=== PATIENT | female | born 1985 | race Asian ===

== ENCOUNTER 2016-10-11 21:35 | Inpatient (IN) | payer MEDICAID, OTHER ==
[~2016-10-11] VITALS: Ht 170.2 cm; Wt 92.9 kg
[~2016-10-11 21:35] MED LIST: FISH1 PO; FLUD25I IM; QUET100T PO; TOPI100 PO; TRIH2TAB3 PO; TRIL8 PO; VITAD1000 PO
[2016-10-11 22:27] LABS: BASOPHILS # (AUTO) 0.02 K/uL (0.00-0.20); BASOPHILS % (AUTO) 0.2 % (0.0-2.0); EOSINOPHILS # (AUTO) 0.03 K/uL (0.00-0.70); HEMATOCRIT 36.9 % (36-46); HEMOGLOBIN 12.2 g/dL (12.0-16.0); LYMPHOCYTES # (AUTO) 2.4 K/uL (1.0-4.8); MEAN CORPUSCULAR HEMOGLOBIN 24.9 pg (26.0-34.0); MEAN CORPUSCULAR VOLUME 75 fL (80-100); MONOCYTES # (AUTO) 0.9 K/uL (0.1-1.0); MONOCYTES % (AUTO) 8.1 % (2.0-9.0); NEUTROPHILS # (AUTO) 7.4 K/uL (1.8-7.7); NEUTROPHILS % (AUTO) 69.4 % (40.0-70.0); PLATELET COUNT (AUTO) 233 K/uL (150-450); RED CELL DISTRIBUTION WIDTH 15.9 % (11.5-14.5); WHITE BLOOD COUNT (AUTO) 10.7 K/uL (4.5-11.0)
[2016-10-11 22:36] LABS: ANION GAP 14 mmol/L (8-16); CALCIUM, TOTAL 9.2 mg/dL (8.8-10.5); CARBON DIOXIDE 22 mmol/L (22-29); CHLORIDE 104 mmol/L (98-107); CREATININE 0.99 mg/dL (0.60-1.30); GLOMERULAR FILTR. RATE CALC > 60 mL/min (>60); POTASSIUM 3.4 mmol/L (3.5-5.1); SODIUM SERUM 140 mmol/L (136-145); UREA NITROGEN, BLOOD 20 mg/dL (7-18)
[2016-10-11 22:41] LABS: ALANINE AMINOTRANSFERASE 15 U/L (12-78); ASPARTATE AMINOTRANSFERASE 9 U/L (15-37); BILIRUBIN,TOTAL 0.2 mg/dL (0.1-1.0); TOTAL PROTEIN, SERUM 8.2 g/dL (6.4-8.2)
[2016-10-11] MEDS ORDERED: LORazepam 2 MG/ML VIAL IM ONE (22:45)
[2016-10-11] MEDS ORDERED: HALOPERIDOL LACTATE 5 MG/ML VIAL IM ONE (22:45)
[2016-10-11] MEDS ORDERED: DiphenhydrAMINE HCL 50 MG/ML VIAL IM ONE (22:45)
[2016-10-12] MEDS ORDERED: QUEtiapine FUMARATE 100 MG TABLET PO PRN (03:45)
[2016-10-12] MEDS ORDERED: LORazepam 2 MG TABLET PO PRN (03:45)
[2016-10-12] MEDS ORDERED: POTASSIUM CHLORIDE 20 MEQ ER TABLET PO ONE (07:00)
[2016-10-12 08:56] LABS: GLUCOSE,POINT OF CARE 188 MG/DL (70-110)
[2016-10-12 10:03] VITALS: BP 102/67
[2016-10-12] MEDS ORDERED: COLLOIDAL OATMEAL/DIMETH 227 GM LOTION TP PRN (11:15)
[2016-10-12] MEDS: DiphenhydrAMINE HCL 25 MG CAPSULE PO PRN ×2 (13:25→23:57)
[2016-10-12] MEDS ORDERED: INFLUENZA VIRUS VACCINE QVS 2016-17 (3YR+)/PF 60 MCG/0.5 ML SYRINGE IM ONE (14:30)
[2016-10-12 16:00] VITALS: BP 126/96
[2016-10-12] MEDS: TOPIRAMATE 100 MG TABLET PO SCH (20:58)
[2016-10-12] MEDS: ILOPERIDONE 2 MG TABLET PO SCH (20:58)
[2016-10-12] MEDS: PERPHENAZINE 8 MG TABLET PO SCH (20:59)
[2016-10-13] VITALS: BP 133/75
[2016-10-13] MEDS: PERPHENAZINE 4 MG TABLET PO SCH (08:26)
[2016-10-13] MEDS: ILOPERIDONE 2 MG TABLET PO SCH ×2 (08:28→20:23)
[2016-10-13 08:57] VITALS: BP 136/84
[2016-10-13 16:00] VITALS: BP 132/79
[2016-10-13] MEDS: PERPHENAZINE 8 MG TABLET PO SCH (20:23)
[2016-10-13] MEDS: TOPIRAMATE 100 MG TABLET PO SCH (20:23)
[2016-10-13] MEDS: DiphenhydrAMINE HCL 25 MG CAPSULE PO PRN (22:37)
[2016-10-14 08:00] VITALS: BP 117/79
[2016-10-14] MEDS: PERPHENAZINE 4 MG TABLET PO SCH (09:33)
[2016-10-14] MEDS: ILOPERIDONE 2 MG TABLET PO SCH ×2 (09:34→21:02)
[2016-10-14 18:35] VITALS: BP 121/72
[2016-10-14] MEDS: TOPIRAMATE 100 MG TABLET PO SCH (21:02)
[2016-10-14] MEDS: PERPHENAZINE 8 MG TABLET PO SCH (21:02)
[2016-10-15] MEDS: DiphenhydrAMINE HCL 25 MG CAPSULE PO PRN (06:05)
[2016-10-15 07:21] LABS: HEMOGLOBIN A1C 5.4 % (4.5-6.2)
[2016-10-15 08:04] LABS: ANION GAP 13 mmol/L (8-16); CARBON DIOXIDE 21 mmol/L (22-29); CHLORIDE 106 mmol/L (98-107); CHOL/HDL RATIO 4.5 (3.9-5.7); CREATINE KINASE MB 0.6 ng/mL (0-5); CREATINE KINASE, TOTAL 217 U/L (26-192); CREATININE 0.68 mg/dL (0.60-1.30); GLOMERULAR FILTR. RATE CALC > 60 mL/min (>60); POTASSIUM 3.5 mmol/L (3.5-5.1); SODIUM SERUM 140 mmol/L (136-145); THYROID STIMULATING HORMONE 2.19 uIU/mL (0.36-3.74); UREA NITROGEN, BLOOD 17 mg/dL (7-18)
[2016-10-15 08:05] VITALS: BP 119/83
[2016-10-15 08:17] LABS: CALCIUM, TOTAL 8.3 mg/dL (8.8-10.5)
[2016-10-15] MEDS: ILOPERIDONE 2 MG TABLET PO SCH ×2 (11:19→20:29)
[2016-10-15] MEDS: PERPHENAZINE 4 MG TABLET PO SCH (11:19)
[2016-10-15 17:49] VITALS: BP 126/70
[2016-10-15] MEDS: PERPHENAZINE 8 MG TABLET PO SCH (20:28)
[2016-10-15] MEDS: TOPIRAMATE 100 MG TABLET PO SCH (20:29)
[2016-10-16 08:05] VITALS: BP 113/78
[2016-10-16] MEDS: ILOPERIDONE 2 MG TABLET PO SCH ×2 (10:06→20:02)
[2016-10-16] MEDS: PERPHENAZINE 4 MG TABLET PO SCH (10:06)
[2016-10-16 11:17] LABS: HEPATITIS Bs ANTIGEN SCREEN P Negative (Negative); HEPATITIS C AB SCREEN <0.1 s/co ratio (0.0-0.9)
[2016-10-16 17:57] VITALS: BP 131/82
[2016-10-16] MEDS: TOPIRAMATE 100 MG TABLET PO SCH (20:03)
[2016-10-16] MEDS: PERPHENAZINE 8 MG TABLET PO SCH (20:03)
[2016-10-16] MEDS: DiphenhydrAMINE HCL 25 MG CAPSULE PO PRN (20:30)
[2016-10-17] MEDS: DiphenhydrAMINE HCL 25 MG CAPSULE PO PRN (08:01)
[2016-10-17] MEDS: PERPHENAZINE 4 MG TABLET PO SCH (08:02)
[2016-10-17] MEDS: ILOPERIDONE 2 MG TABLET PO SCH ×2 (08:02→20:00)
[2016-10-17 08:05] VITALS: BP 111/71
[2016-10-17 16:44] VITALS: BP 107/66
[2016-10-17] MEDS: TOPIRAMATE 100 MG TABLET PO SCH (20:00)
[2016-10-17] MEDS: PERPHENAZINE 8 MG TABLET PO SCH (20:00)
[2016-10-18 08:05] VITALS: BP 111/64
[2016-10-18] MEDS ORDERED: TRIL8 PO (08:38)
[2016-10-18] MEDS ORDERED: ILOP2TAB2 PO (08:38)
[2016-10-18] MEDS ORDERED: TRIL4 PO (08:38)
[2016-10-18] MEDS: TOPIRAMATE 100 MG TABLET PO SCH (08:57)
[2016-10-18] MEDS: ILOPERIDONE 2 MG TABLET PO SCH (08:57)
[2016-10-18] MEDS: DiphenhydrAMINE HCL 25 MG CAPSULE PO PRN (08:57)
[2016-10-18] MEDS: PERPHENAZINE 4 MG TABLET PO SCH (08:58)
== END 2016-10-18 11:45 | disposition home or self-care (01) | DRG 750 ==
LOC: EMS 21:37 → 3EI 10-12 06:37 → UNDOADMIN 10-12 07:09 → 3EI 10-12 07:09
PROVIDERS: ADMIT Psychiatry & Neurology Psychiatry; ATTEND Psychiatry & Neurology Psychiatry
DX: F20.0 Paranoid schizophrenia (principal); R45.851 Suicidal ideations; R45.850 Homicidal ideations; F41.9 Anxiety disorder, unspecified; I10 Essential (primary) hypertension; E11.9 Type 2 diabetes mellitus without complications; J45.909 Unspecified asthma, uncomplicated; G47.00 Insomnia, unspecified; I34.1 Nonrheumatic mitral (valve) prolapse; E87.6 Hypokalemia; Z91.14 Patient's other noncompliance with medication regimen; Z88.8 Allergy status to other drugs, medicaments and biological substances; Z79.899 Other long term (current) drug therapy; Z28.21 Immunization not carried out because of patient refusal; Z81.8 Family history of other mental and behavioral disorders; Z83.3 Family history of diabetes mellitus
CPT/HCPCS: 80074; 82306; 82607; 82746; 82962; 83036; 83735; 84439; 84443; 96372; 99285; G0480; J1200; J1630; J2060

== ENCOUNTER 2016-10-22 20:55 | Emergency (ER) | payer MEDICAID ==
[~2016-10-22] VITALS: Ht 162.6 cm; Wt 90.9 kg
[~2016-10-22 20:55] MED LIST changes: -FISH1 PO; -FLUD25I IM; +ILOP2TAB2 PO; -QUET100T PO; -TRIH2TAB3 PO; +TRIL4 PO; -VITAD1000 PO
[2016-10-22 21:01] VITALS: BP 163/96
== END 2016-10-22 23:43 | disposition left against medical advice (07) ==
LOC: EMS 20:57 → EEVIPCON 20:57 → EMS 23:43
DX: F41.9 Anxiety disorder, unspecified (principal); F32.9 Major depressive disorder, single episode, unspecified; F20.9 Schizophrenia, unspecified; I10 Essential (primary) hypertension; E11.9 Type 2 diabetes mellitus without complications; J45.909 Unspecified asthma, uncomplicated; Z53.21 Procedure and treatment not carried out due to patient leaving prior to being seen by health care provider

== ENCOUNTER 2016-12-30 22:47 | Emergency (ER) | payer MEDICAID, OTHER ==
[~2016-12-30] VITALS: Ht 170.2 cm; Wt 100.0 kg
[2016-12-31 00:03] LABS: BASOPHILS % (AUTO) 0.3 % (0.0-2.0); EOSINOPHILS % (AUTO) 0.5 % (1.0-6.0); HEMOGLOBIN 10.8 g/dL (12.0-16.0); LYMPHOCYTES # (AUTO) 2.3 K/uL (1.0-4.8); LYMPHOCYTES % (AUTO) 28.3 % (22.0-44.0); MEAN CORPUSCULAR HEMOGLOBIN 24.1 pg (26.0-34.0); MEAN CORPUSCULAR HGB CONC 32.8 G/dL (31.0-37.0); MEAN CORPUSCULAR VOLUME 73 fL (80-100); MONOCYTES # (AUTO) 0.6 K/uL (0.1-1.0); MONOCYTES % (AUTO) 7.4 % (2.0-9.0); NEUTROPHILS # (AUTO) 5.1 K/uL (1.8-7.7); NEUTROPHILS % (AUTO) 63.5 % (40.0-70.0); PLATELET COUNT (AUTO) 212 K/uL (150-450); RED CELL DISTRIBUTION WIDTH 16.5 % (11.5-14.5)
[2016-12-31 00:20] LABS: ALBUMIN 3.7 g/dL (3.4-5.0); ANION GAP 11 mmol/L (8-16); BILIRUBIN,TOTAL 0.4 mg/dL (0.1-1.0); CALCIUM, TOTAL 8.4 mg/dL (8.8-10.5); CARBON DIOXIDE 24 mmol/L (22-29); CHLORIDE 105 mmol/L (98-107); GLOMERULAR FILTR. RATE CALC > 60 mL/min (>60); POTASSIUM 3.7 mmol/L (3.5-5.1); SODIUM SERUM 140 mmol/L (136-145); UREA NITROGEN, BLOOD 14 mg/dL (7-18)
[2016-12-31] MEDS ORDERED: HALOPERIDOL 5 MG TABLET PO ONE (00:30)
[2016-12-31] MEDS ORDERED: LORazepam 2 MG TABLET PO ONE (00:30)
[2016-12-31] MEDS ORDERED: DiphenhydrAMINE HCL 25 MG CAPSULE PO ONE (00:30)
[2016-12-31 00:45] LABS: ALANINE AMINOTRANSFERASE 32 U/L (12-78); ASPARTATE AMINOTRANSFERASE 19 U/L (15-37); TOTAL PROTEIN, SERUM 7.1 g/dL (6.4-8.2)
[2016-12-31 01:22] VITALS: BP 132/88
[2016-12-31 03:34] LABS: RBC MORPHOLOGY COMMENT ABNORMAL RBC MORPH
== END 2016-12-31 01:26 | disposition home or self-care (01) ==
LOC: EMS 22:49
DX: R44.0 Auditory hallucinations (principal); F20.9 Schizophrenia, unspecified; F32.9 Major depressive disorder, single episode, unspecified; F41.9 Anxiety disorder, unspecified; J06.9 Acute upper respiratory infection, unspecified; J45.909 Unspecified asthma, uncomplicated; I10 Essential (primary) hypertension; E11.9 Type 2 diabetes mellitus without complications; Z88.8 Allergy status to other drugs, medicaments and biological substances
CPT/HCPCS: 36415; 80053; 80307; 84703; 85025; 99284; G0480

== ENCOUNTER 2017-01-05 18:35 | Emergency (ER) | payer OTHER ==
[~2017-01-05] VITALS: Ht 170.2 cm; Wt 101.8 kg
[2017-01-05] MEDS ORDERED: TRIH2TAB3 PO (19:06)
[2017-01-05 19:07] LABS: GLUCOSE,POINT OF CARE 108 MG/DL (70-110)
[2017-01-05 20:00] VITALS: BP 120/88
[2017-01-05] MEDS ORDERED: IBUPROFEN 600 MG TABLET PO ONE (20:00)
== END 2017-01-05 20:02 | disposition home or self-care (01) ==
LOC: EMS 18:37
DX: J40 Bronchitis, not specified as acute or chronic (principal); M10.9 Gout, unspecified; J45.909 Unspecified asthma, uncomplicated; E11.9 Type 2 diabetes mellitus without complications; I10 Essential (primary) hypertension; Z88.8 Allergy status to other drugs, medicaments and biological substances
CPT/HCPCS: 71020; 82962; 99284

== ENCOUNTER 2017-01-17 15:06 | Emergency (ER) | payer OTHER ==
[~2017-01-17] VITALS: Ht 170.2 cm; Wt 100.0 kg
[~2017-01-17 15:06] MED LIST changes: +TRIH2TAB3 PO; -TRIL4 PO; -TRIL8 PO
[2017-01-17] MEDS ORDERED: DiphenhydrAMINE HCL 50 MG/ML VIAL IVP ONE (16:00)
[2017-01-17] MEDS ORDERED: MethylPREDNISolone SOD SUCC 125 MG/2 ML VIAL IVP ONE (16:00)
[2017-01-17] MEDS ORDERED: RANITIDINE HCL 25 MG/ML 2 ML VIAL IVP ONE (16:00)
[2017-01-17 16:17] LABS: BASOPHILS # (AUTO) 0.04 K/uL (0.00-0.20); BASOPHILS % (AUTO) 0.4 % (0.0-2.0); EOSINOPHILS % (AUTO) 0 % (1.0-6.0); HEMATOCRIT 35.9 % (36-46); HEMOGLOBIN 11.5 g/dL (12.0-16.0); LYMPHOCYTES # (AUTO) 0.9 K/uL (1.0-4.8); LYMPHOCYTES % (AUTO) 8.4 % (22.0-44.0); MEAN CORPUSCULAR HEMOGLOBIN 23.5 pg (26.0-34.0); MEAN CORPUSCULAR VOLUME 73 fL (80-100); MONOCYTES # (AUTO) 0.2 K/uL (0.1-1.0); MONOCYTES % (AUTO) 2.4 % (2.0-9.0); NEUTROPHILS # (AUTO) 9.1 K/uL (1.8-7.7); PLATELET COUNT (AUTO) 211 K/uL (150-450); RED BLOOD CELL COUNT(AUTO) 4.89 MIL/uL (4.00-5.20); RED CELL DISTRIBUTION WIDTH 17.4 % (11.5-14.5); WHITE BLOOD COUNT (AUTO) 10.2 K/uL (4.5-11.0)
[2017-01-17 16:22] LABS: ANION GAP 13 mmol/L (8-16); CARBON DIOXIDE 20 mmol/L (22-29); CHLORIDE 104 mmol/L (98-107); CREATININE 0.89 mg/dL (0.60-1.30); SODIUM SERUM 137 mmol/L (136-145); UREA NITROGEN, BLOOD 13 mg/dL (7-18)
[2017-01-17 16:23] LABS: CALCIUM, TOTAL 9.3 mg/dL (8.8-10.5); GLOMERULAR FILTR. RATE CALC > 60 mL/min (>60); NEUTROPHILS % (AUTO) 88.9 % (40.0-70.0)
[2017-01-17 16:28] LABS: ALANINE AMINOTRANSFERASE 20 U/L (12-78); ALBUMIN 4.1 g/dL (3.4-5.0); ASPARTATE AMINOTRANSFERASE 12 U/L (15-37); BILIRUBIN,TOTAL 0.4 mg/dL (0.1-1.0); TOTAL PROTEIN, SERUM 8.3 g/dL (6.4-8.2)
[2017-01-17 16:44] LABS: RBC MORPHOLOGY COMMENT ABNORMAL RBC MORPH
[2017-01-17 17:24] VITALS: BP 107/56
== END 2017-01-17 18:05 | disposition home or self-care (01) ==
LOC: EMS 15:08
DX: T78.3XXA Angioneurotic edema, initial encounter (principal); J45.909 Unspecified asthma, uncomplicated; E11.9 Type 2 diabetes mellitus without complications; I10 Essential (primary) hypertension; Z88.8 Allergy status to other drugs, medicaments and biological substances
CPT/HCPCS: 36415; 80053; 85025; 96374; 96375; 99284; J1200; J2780; J2930

== ENCOUNTER 2018-01-04 21:47 | Emergency (ER) | payer OTHER ==
[~2018-01-04] VITALS: Ht 170.2 cm; Wt 90.0 kg
[~2018-01-04 21:47] MED LIST changes: -TOPI100 PO; +TOPI100T37 PO
[2018-01-04 23:03] LABS: BASOPHILS % (AUTO) 0.3 % (0.0-2.0); EOSINOPHILS % (AUTO) 0.6 % (1.0-6.0); HEMATOCRIT 41.4 % (36-46); HEMOGLOBIN 14.2 g/dL (12.0-16.0); LYMPHOCYTES # (AUTO) 2.1 K/uL (1.0-4.8); LYMPHOCYTES % (AUTO) 22.1 % (22.0-44.0); MEAN CORPUSCULAR HEMOGLOBIN 29.1 pg (26.0-34.0); MEAN CORPUSCULAR HGB CONC 34.4 G/dL (31.0-37.0); MEAN CORPUSCULAR VOLUME 85 fL (80-100); MONOCYTES # (AUTO) 0.8 K/uL (0.1-1.0); MONOCYTES % (AUTO) 8.8 % (2.0-9.0); NEUTROPHILS # (AUTO) 6.5 K/uL (1.8-7.7); NEUTROPHILS % (AUTO) 68.2 % (40.0-70.0); PLATELET COUNT (AUTO) 192 K/uL (150-450); RED BLOOD CELL COUNT(AUTO) 4.88 MIL/uL (4.00-5.20); RED CELL DISTRIBUTION WIDTH 13.3 % (11.5-14.5)
[2018-01-04 23:12] LABS: ANION GAP 7 mmol/L (8-16); CALCIUM, TOTAL 9.1 mg/dL (8.8-10.5); CARBON DIOXIDE 29 mmol/L (22-29); CHLORIDE 101 mmol/L (98-107); CREATININE 0.98 mg/dL (0.60-1.30); GLOMERULAR FILTR. RATE CALC > 60 mL/min (>60); GLUCOSE,RANDOM 194 mg/dL (70-110); POTASSIUM 3.6 mmol/L (3.5-5.1); SODIUM SERUM 137 mmol/L (136-145); UREA NITROGEN, BLOOD 17 mg/dL (7-18)
[2018-01-04 23:18] LABS: ALANINE AMINOTRANSFERASE 30 U/L (12-78); ALKALINE PHOSPHATASE 57 U/L (46-116); ASPARTATE AMINOTRANSFERASE 14 U/L (15-37); BILIRUBIN,TOTAL 0.3 mg/dL (0.1-1.0); TOTAL PROTEIN, SERUM 7.9 g/dL (6.4-8.2)
[2018-01-05 02:29] VITALS: BP 128/76
== END 2018-01-05 02:32 | disposition home or self-care (01) ==
LOC: EMS 21:48
DX: R51 Headache (principal); F41.9 Anxiety disorder, unspecified; J45.909 Unspecified asthma, uncomplicated; F32.9 Major depressive disorder, single episode, unspecified; E11.9 Type 2 diabetes mellitus without complications; I10 Essential (primary) hypertension; F20.9 Schizophrenia, unspecified; I34.9 Nonrheumatic mitral valve disorder, unspecified; Z88.8 Allergy status to other drugs, medicaments and biological substances; Z79.899 Other long term (current) drug therapy
CPT/HCPCS: 99284

== ENCOUNTER 2018-03-18 10:02 | Emergency (ER) | payer OTHER ==
[~2018-03-18] VITALS: Ht 172.7 cm; Wt 90.9 kg
[2018-03-18 12:28] VITALS: BP 133/96
== END 2018-03-18 13:11 | disposition home or self-care (01) ==
LOC: EMS 10:03
DX: M79.89 Other specified soft tissue disorders (principal); M79.641 Pain in right hand; I10 Essential (primary) hypertension; E11.9 Type 2 diabetes mellitus without complications; J45.909 Unspecified asthma, uncomplicated; Z88.8 Allergy status to other drugs, medicaments and biological substances
CPT/HCPCS: 99283

== ENCOUNTER 2018-05-21 18:34 | Inpatient (IN) | payer OTHER ==
[~2018-05-21] VITALS: Ht 170.2 cm; Wt 100.0 kg
[2018-05-21 19:24] LABS: GLUCOSE,POINT OF CARE 370 MG/DL (70-110)
[2018-05-21] MEDS ORDERED: SODIUM CHLORIDE 0.9% 1,000 ML IV ONE (19:30)
[2018-05-21] MEDS ORDERED: ACETAMINOPHEN 500 MG TABLET PO ONE (19:30)
[2018-05-21] MEDS ORDERED: IBUPROFEN 600 MG TABLET PO ONE (19:30)
[2018-05-21 19:49] LABS: BASOPHILS % (AUTO) 0.1 % (0.0-2.0); EOSINOPHILS % (AUTO) 0 % (1.0-6.0); HEMATOCRIT 33.5 % (36-46); HEMOGLOBIN 11.1 g/dL (12.0-16.0); LYMPHOCYTES # (AUTO) 1.2 K/uL (1.0-4.8); LYMPHOCYTES % (AUTO) 6.6 % (22.0-44.0); MEAN CORPUSCULAR HEMOGLOBIN 26.8 pg (26.0-34.0); MEAN CORPUSCULAR VOLUME 81 fL (80-100); MONOCYTES # (AUTO) 2.4 K/uL (0.1-1.0); MONOCYTES % (AUTO) 13.5 % (2.0-9.0); NEUTROPHILS # (AUTO) 14.2 K/uL (1.8-7.7); NEUTROPHILS % (AUTO) 79.8 % (40.0-70.0); PLATELET COUNT (AUTO) 162 K/uL (150-450); RED BLOOD CELL COUNT(AUTO) 4.13 MIL/uL (4.00-5.20); RED CELL DISTRIBUTION WIDTH 14.1 % (11.5-14.5)
[2018-05-21] MEDS ORDERED: INSULIN REGULAR, HUMAN 100 UNITS/ML IVP ONE (20:00)
[2018-05-21 20:03] LABS: CALCIUM, TOTAL 8.9 mg/dL (8.8-10.5); CREATININE 1.44 mg/dL (0.60-1.30); POTASSIUM 3.4 mmol/L (3.5-5.1)
[2018-05-21 20:08] LABS: ALBUMIN 3.6 g/dL (3.4-5.0); BILIRUBIN,TOTAL 0.9 mg/dL (0.1-1.0); TOTAL PROTEIN, SERUM 7.7 g/dL (6.4-8.2)
[2018-05-21 20:23] LABS: LACTIC ACID 1.4 mmol/L (0.4-2.0)
[2018-05-21] MEDS ORDERED: ONDANSETRON HCL 4 MG/2 ML VIAL IVP PRN (20:45)
[2018-05-21] MEDS ORDERED: SODIUM CHLORIDE 0.9% 2,000 ML IV ONE (20:45)
[2018-05-21] MEDS ORDERED: TOPIRAMATE 25 MG TABLET PO ONE (20:45)
[2018-05-21] MEDS ORDERED: LORazepam 1 MG TABLET PO ONE (20:45)
[2018-05-21] MEDS ORDERED: ACETAMINOPHEN 500 MG TABLET PO PRN (20:45)
[2018-05-21] MEDS ORDERED: 0.9% SODIUM CHLORIDE 10 ML SYRINGE IVP PRN (20:45)
[2018-05-21] MEDS ORDERED: CefTRIAXone SODIUM 1 GM in DEXTROSE 5%-WATER 10 ML IV ONE (20:45)
[2018-05-21 20:49] LABS: GLUCOSE,POINT OF CARE 268 MG/DL (70-110)
[2018-05-21] MEDS ORDERED: TOPIRAMATE 100 MG TABLET PO ONE (21:00)
[2018-05-21 21:27] LABS: APPEARANCE,URINE CLOUDY (CLEAR); BILIRUBIN,URINE NEGATIVE (NEGATIVE); GLUCOSE, URINE (UA) >=1000 mg/dL (NEGATIVE); KETONES,URINE NEGATIVE (NEGATIVE); LEUKOCYTE ESTERASE ,URINE MODERATE (NEGATIVE); NITRATE,URINE NEGATIVE (NEGATIVE); OCCULT BLOOD,URINE LARGE (NEGATIVE); PROTEIN,URINE POS 1+ (NEGATIVE); UROBILINOGEN,URINE 0.2 mg/dL (<=1.0)
[2018-05-21 21:38] LABS: BACTERIA,URINE Moderate /HPF (None Seen); WBC,URINE 51-100 /HPF (0-5)
[2018-05-21 21:39] LABS: RBC,URINE 26-50 /HPF (0-2); SQUAMOUS EPITHELIAL CELL,UR Few /LPF (None Seen)
[2018-05-21] MEDS ORDERED: POTASSIUM CHL 10 MEQ/WATER 50 ML IV PRN (21:45)
[2018-05-21] MEDS ORDERED: MAGNESIUM HYDROXIDE SUSPENSION 30 ML UDCUP PO PRN (21:45)
[2018-05-21] MEDS ORDERED: POTASSIUM CHLORIDE 20 MEQ ER TABLET PO PRN (21:45)
[2018-05-21] MEDS ORDERED: DEXTROSE 50%-WATER 25 GM/50 ML SYRINGE IVP PRN (21:45)
[2018-05-21] MEDS ORDERED: AZITHROMYCIN 500 MG/NS 250 ML IV SCH (22:00)
[2018-05-21 22:08] LABS: INFLUENZA TYPE A NEGATIVE FOR TYPE A (NEGATIVE); INFLUENZA TYPE B NEGATIVE FOR TYPE B (NEGATIVE)
[2018-05-21 22:25] VITALS: BP 125/50
[2018-05-21] MEDS: SODIUM CHLORIDE 0.9% 1,000 ML IV SCH (23:20)
[2018-05-21 23:59] VITALS: BP 117/53
[2018-05-22 04:50] VITALS: BP 119/69
[2018-05-22] MEDS: ACETAMINOPHEN 325 MG TABLET PO PRN ×5 (04:56→23:11)
[2018-05-22] MEDS: INSULIN LISPRO 100 UNITS/ML SQ PRN ×4 (05:10→20:57)
[2018-05-22 06:30] LABS: BASOPHILS % (AUTO) 0.2 % (0.0-2.0); EOSINOPHILS % (AUTO) 0.1 % (1.0-6.0); HEMATOCRIT 30.2 % (36-46); HEMOGLOBIN 10.1 g/dL (12.0-16.0); LYMPHOCYTES # (AUTO) 0.7 K/uL (1.0-4.8); LYMPHOCYTES % (AUTO) 5.2 % (22.0-44.0); MEAN CORPUSCULAR HEMOGLOBIN 27.1 pg (26.0-34.0); MEAN CORPUSCULAR HGB CONC 33.5 G/dL (31.0-37.0); MEAN CORPUSCULAR VOLUME 81 fL (80-100); MONOCYTES # (AUTO) 1.3 K/uL (0.1-1.0); MONOCYTES % (AUTO) 9.9 % (2.0-9.0); NEUTROPHILS # (AUTO) 11.1 K/uL (1.8-7.7); NEUTROPHILS % (AUTO) 84.6 % (40.0-70.0); PLATELET COUNT (AUTO) 142 K/uL (150-450); RED BLOOD CELL COUNT(AUTO) 3.73 MIL/uL (4.00-5.20)
[2018-05-22 06:49] LABS: CALCIUM, TOTAL 8.6 mg/dL (8.8-10.5); CREATININE 1.37 mg/dL (0.60-1.30); POTASSIUM 3.8 mmol/L (3.5-5.1)
[2018-05-22] MEDS ORDERED: PNEUMOCOCCAL VACCINE POLYVALENT 0.5 ML VIAL [PPSV23] IM ONE (07:15)
[2018-05-22 08:21] VITALS: BP 126/85
[2018-05-22] MEDS: DOCUSATE SODIUM 100 MG CAPSULE PO SCH ×2 (08:41→19:59)
[2018-05-22] MEDS: PANTOPRAZOLE SODIUM 40 MG DR TABLET PO SCH (08:41)
[2018-05-22] MEDS ORDERED: ONDANSETRON HCL 4 MG/2 ML VIAL IM PRN (09:45)
[2018-05-22 09:52] LABS: GLUCOMETER DEV NAME(LOC) 6N 1E; GLUCOSE,POINT OF CARE 222 MG/DL (70-110)
[2018-05-22] MEDS: SODIUM CHLORIDE 0.9% 1,000 ML IV SCH ×2 (09:54→23:11)
[2018-05-22 10:02] LABS: GLUCOMETER DEV NAME(LOC) 6N 1E; GLUCOSE,POINT OF CARE 307 MG/DL (70-110)
[2018-05-22 11:47] VITALS: BP 133/78
[2018-05-22 13:09] LABS: GLUCOMETER DEV NAME(LOC) 6N 2D; GLUCOSE,POINT OF CARE 199 MG/DL (70-110)
[2018-05-22 16:23] VITALS: BP 145/95
[2018-05-22 17:44] LABS: GLUCOMETER DEV NAME(LOC) 6N 1E; GLUCOSE,POINT OF CARE 216 MG/DL (70-110)
[2018-05-22 18:01] LABS: APPEARANCE,URINE CLEAR (CLEAR); BILIRUBIN,URINE NEGATIVE (NEGATIVE); GLUCOSE, URINE (UA) 500 mg/dL (NEGATIVE); KETONES,URINE NEGATIVE (NEGATIVE); LEUKOCYTE ESTERASE ,URINE TRACE (NEGATIVE); NITRATE,URINE NEGATIVE (NEGATIVE); OCCULT BLOOD,URINE LARGE (NEGATIVE); PH,URINE 7.5 (5.0-8.0); PROTEIN,URINE TRACE (NEGATIVE)
[2018-05-22 18:20] LABS: RBC,URINE 26-50 /HPF (0-2)
[2018-05-22 18:21] LABS: BACTERIA,URINE Few /HPF (None Seen); SQUAMOUS EPITHELIAL CELL,UR Few /LPF (None Seen)
[2018-05-22] MEDS ORDERED: ILOP4TAB2 PO (18:39)
[2018-05-22] MEDS ORDERED: 0.9% SODIUM CHLORIDE 5 ML NEB SOLUTION NEB ONE ×3 (18:39→23:48)
[2018-05-22] MEDS: ALBUTEROL SULFATE 2.5 MG/0.5 ML NEB SOLUTION NEB PRN ×2 (18:42→23:52)
[2018-05-22] MEDS: TRIHEXYPHENIDYL HCL 2 MG TABLET PO SCH (19:59)
[2018-05-22] MEDS: TOPIRAMATE 100 MG TABLET PO SCH (19:59)
[2018-05-22] MEDS: CefTRIAXone SODIUM 1 GM in DEXTROSE 5%-WATER 10 ML IV SCH (20:00)
[2018-05-22] MEDS: ILOPERIDONE 4 MG TABLET PO SCH (20:01)
[2018-05-22 20:29] VITALS: BP 138/89
[2018-05-22 22:39] LABS: GLUCOMETER DEV NAME(LOC) 6N 2D; GLUCOSE,POINT OF CARE 258 MG/DL (70-110)
[2018-05-22 23:00] VITALS: BP 151/107
[2018-05-22] MEDS: GuaiFENesin/D-METHORPHAN [SUGAR-FREE] 200-20MG/10 ML SYRUP UDCUP PO PRN (23:03)
[2018-05-23] MEDS: ACETAMINOPHEN 325 MG TABLET PO PRN ×3 (04:11→20:58)
[2018-05-23] MEDS: GuaiFENesin/D-METHORPHAN [SUGAR-FREE] 200-20MG/10 ML SYRUP UDCUP PO PRN ×4 (04:11→21:00)
[2018-05-23 04:33] VITALS: BP 128/91
[2018-05-23] MEDS: INSULIN LISPRO 100 UNITS/ML SQ PRN ×4 (05:32→21:13)
[2018-05-23 06:26] LABS: BASOPHILS % (AUTO) 0.1 % (0.0-2.0); EOSINOPHILS % (AUTO) 0.3 % (1.0-6.0); HEMATOCRIT 27.6 % (36-46); HEMOGLOBIN 9.4 g/dL (12.0-16.0); LYMPHOCYTES % (AUTO) 10.3 % (22.0-44.0); MEAN CORPUSCULAR HEMOGLOBIN 27.7 pg (26.0-34.0); MEAN CORPUSCULAR HGB CONC 33.9 G/dL (31.0-37.0); MEAN CORPUSCULAR VOLUME 82 fL (80-100); MONOCYTES # (AUTO) 1.2 K/uL (0.1-1.0); NEUTROPHILS # (AUTO) 7.2 K/uL (1.8-7.7); NEUTROPHILS % (AUTO) 76.3 % (40.0-70.0); PLATELET COUNT (AUTO) 124 K/uL (150-450); RED BLOOD CELL COUNT(AUTO) 3.38 MIL/uL (4.00-5.20); RED CELL DISTRIBUTION WIDTH 13.9 % (11.5-14.5)
[2018-05-23 06:44] LABS: CALCIUM, TOTAL 8.5 mg/dL (8.8-10.5); CREATININE 1.32 mg/dL (0.60-1.30); POTASSIUM 3.8 mmol/L (3.5-5.1)
[2018-05-23 07:10] VITALS: BP 127/81
[2018-05-23] MEDS: PANTOPRAZOLE SODIUM 40 MG DR TABLET PO SCH (08:12)
[2018-05-23] MEDS: DOCUSATE SODIUM 100 MG CAPSULE PO SCH ×2 (08:13→20:58)
[2018-05-23] MEDS: GlipiZIDE 5 MG TABLET PO SCH (08:13)
[2018-05-23] MEDS: TRIHEXYPHENIDYL HCL 2 MG TABLET PO SCH ×2 (08:13→20:58)
[2018-05-23] MEDS: SODIUM CHLORIDE 0.9% 1,000 ML IV SCH (08:36)
[2018-05-23 10:19] LABS: GLUCOMETER DEV NAME(LOC) 6N 2D; GLUCOSE,POINT OF CARE 197 MG/DL (70-110)
[2018-05-23 11:11] VITALS: BP 124/80
[2018-05-23 11:38] LABS: GLUCOMETER DEV NAME(LOC) 6N 1E; GLUCOSE,POINT OF CARE 184 MG/DL (70-110)
[2018-05-23 15:50] VITALS: BP 140/78
[2018-05-23] MEDS ORDERED: 0.9% SODIUM CHLORIDE 5 ML NEB SOLUTION NEB ONE ×2 (16:00→20:35)
[2018-05-23] MEDS: ALBUTEROL SULFATE 2.5 MG/0.5 ML NEB SOLUTION NEB PRN ×2 (16:02→20:37)
[2018-05-23 19:44] LABS: GLUCOMETER DEV NAME(LOC) 6N 1E; GLUCOSE,POINT OF CARE 145 MG/DL (70-110)
[2018-05-23 19:54] VITALS: BP 137/85
[2018-05-23] MEDS: CefTRIAXone SODIUM 1 GM in DEXTROSE 5%-WATER 10 ML IV SCH (20:58)
[2018-05-23] MEDS: TOPIRAMATE 100 MG TABLET PO SCH (20:58)
[2018-05-23] MEDS: ILOPERIDONE 4 MG TABLET PO SCH (20:58)
[2018-05-23 23:24] LABS: GLUCOMETER DEV NAME(LOC) 6N 2D; GLUCOSE,POINT OF CARE 198 MG/DL (70-110)
[2018-05-24 00:22] VITALS: BP 129/86
[2018-05-24] MEDS: ACETAMINOPHEN 325 MG TABLET PO PRN (02:23)
[2018-05-24] MEDS: GuaiFENesin/D-METHORPHAN [SUGAR-FREE] 200-20MG/10 ML SYRUP UDCUP PO PRN ×4 (02:23→20:45)
[2018-05-24] MEDS: SODIUM CHLORIDE 0.9% 1,000 ML IV SCH ×2 (02:24→14:27)
[2018-05-24 05:17] VITALS: BP 123/83
[2018-05-24] MEDS: INSULIN LISPRO 100 UNITS/ML SQ PRN ×2 (06:29→20:45)
[2018-05-24] MEDS: GlipiZIDE 5 MG TABLET PO SCH (06:32)
[2018-05-24 06:46] LABS: BASOPHILS % (AUTO) 0.6 % (0.0-2.0); EOSINOPHILS % (AUTO) 0.9 % (1.0-6.0); HEMATOCRIT 28.2 % (36-46); HEMOGLOBIN 9.5 g/dL (12.0-16.0); LYMPHOCYTES % (AUTO) 17.7 % (22.0-44.0); MEAN CORPUSCULAR HEMOGLOBIN 27.5 pg (26.0-34.0); MEAN CORPUSCULAR HGB CONC 33.5 G/dL (31.0-37.0); MEAN CORPUSCULAR VOLUME 82 fL (80-100); MONOCYTES # (AUTO) 0.9 K/uL (0.1-1.0); MONOCYTES % (AUTO) 15.7 % (2.0-9.0); NEUTROPHILS # (AUTO) 3.7 K/uL (1.8-7.7); NEUTROPHILS % (AUTO) 65.1 % (40.0-70.0); PLATELET COUNT (AUTO) 169 K/uL (150-450); RED BLOOD CELL COUNT(AUTO) 3.43 MIL/uL (4.00-5.20); RED CELL DISTRIBUTION WIDTH 14.2 % (11.5-14.5)
[2018-05-24 06:57] LABS: CALCIUM, TOTAL 8.6 mg/dL (8.8-10.5); CREATININE 1.15 mg/dL (0.60-1.30); POTASSIUM 3.7 mmol/L (3.5-5.1)
[2018-05-24 07:14] LABS: GLUCOMETER DEV NAME(LOC) 6N 2D; GLUCOSE,POINT OF CARE 194 MG/DL (70-110)
[2018-05-24 07:29] LABS: HEMOGLOBIN A1C 9.1 % (4.5-6.2)
[2018-05-24 07:30] VITALS: BP 115/71
[2018-05-24] MEDS: TRIHEXYPHENIDYL HCL 2 MG TABLET PO SCH ×2 (08:30→23:33)
[2018-05-24] MEDS: PANTOPRAZOLE SODIUM 40 MG DR TABLET PO SCH (08:30)
[2018-05-24] MEDS: DOCUSATE SODIUM 100 MG CAPSULE PO SCH ×2 (08:30→20:45)
[2018-05-24 11:10] VITALS: BP 138/90
[2018-05-24] MEDS: ERTAPENEM SODIUM 1 GM in SODIUM CHLORIDE 0.9% 50 ML IV SCH (14:26)
[2018-05-24 14:59] LABS: GLUCOMETER DEV NAME(LOC) 6N 2D; GLUCOSE,POINT OF CARE 115 MG/DL (70-110)
[2018-05-24 15:18] VITALS: BP 128/92
[2018-05-24 20:09] VITALS: BP 131/81
[2018-05-24 20:14] LABS: GLUCOMETER DEV NAME(LOC) 6N 2D; GLUCOSE,POINT OF CARE 126 MG/DL (70-110)
[2018-05-24] MEDS ORDERED: 0.9% SODIUM CHLORIDE 5 ML NEB SOLUTION NEB ONE (20:42)
[2018-05-24] MEDS: ALBUTEROL SULFATE 2.5 MG/0.5 ML NEB SOLUTION NEB PRN (20:43)
[2018-05-24] MEDS: TOPIRAMATE 100 MG TABLET PO SCH (20:45)
[2018-05-24] MEDS: ILOPERIDONE 4 MG TABLET PO SCH (20:45)
[2018-05-24 23:24] LABS: GLUCOMETER DEV NAME(LOC) 6N 1E; GLUCOSE,POINT OF CARE 141 MG/DL (70-110)
[2018-05-25 00:08] VITALS: BP 114/77
[2018-05-25] MEDS: SODIUM CHLORIDE 0.9% 1,000 ML IV SCH (01:27)
[2018-05-25] MEDS: GuaiFENesin/D-METHORPHAN [SUGAR-FREE] 200-20MG/10 ML SYRUP UDCUP PO PRN ×3 (04:23→21:15)
[2018-05-25 04:33] VITALS: BP 113/67
[2018-05-25] MEDS: GlipiZIDE 5 MG TABLET PO SCH (05:18)
[2018-05-25] MEDS: INSULIN LISPRO 100 UNITS/ML SQ PRN ×2 (05:19→23:30)
[2018-05-25 06:29] LABS: GLUCOMETER DEV NAME(LOC) 6N 1E; GLUCOSE,POINT OF CARE 172 MG/DL (70-110)
[2018-05-25 07:57] VITALS: BP 117/79
[2018-05-25] MEDS: DOCUSATE SODIUM 100 MG CAPSULE PO SCH ×2 (09:00→21:08)
[2018-05-25] MEDS: TRIHEXYPHENIDYL HCL 2 MG TABLET PO SCH ×2 (09:47→21:08)
[2018-05-25] MEDS: PANTOPRAZOLE SODIUM 40 MG DR TABLET PO SCH (09:47)
[2018-05-25 12:56] VITALS: BP 110/69
[2018-05-25] MEDS: ERTAPENEM SODIUM 1 GM in SODIUM CHLORIDE 0.9% 50 ML IV SCH (14:32)
[2018-05-25] MEDS ORDERED: 0.9% SODIUM CHLORIDE 5 ML NEB SOLUTION NEB ONE (14:45)
[2018-05-25] MEDS: ALBUTEROL SULFATE 2.5 MG/0.5 ML NEB SOLUTION NEB PRN (14:48)
[2018-05-25 16:31] VITALS: BP 126/87
[2018-05-25 17:54] LABS: GLUCOMETER DEV NAME(LOC) 6N 1E; GLUCOSE,POINT OF CARE 111 MG/DL (70-110)
[2018-05-25 19:50] VITALS: BP 121/82
[2018-05-25 20:09] LABS: GLUCOMETER DEV NAME(LOC) 6N 1E; GLUCOSE,POINT OF CARE 132 MG/DL (70-110)
[2018-05-25] MEDS: TOPIRAMATE 100 MG TABLET PO SCH (21:09)
[2018-05-25] MEDS: ILOPERIDONE 4 MG TABLET PO SCH (21:09)
[2018-05-25 23:33] LABS: GLUCOMETER DEV NAME(LOC) 6N 1E; GLUCOSE,POINT OF CARE 156 MG/DL (70-110)
[2018-05-26 00:52] VITALS: BP 124/59
[2018-05-26 05:48] VITALS: BP 100/62
[2018-05-26] MEDS: GlipiZIDE 5 MG TABLET PO SCH (06:11)
[2018-05-26] MEDS: INSULIN LISPRO 100 UNITS/ML SQ PRN ×3 (06:12→21:46)
[2018-05-26 06:36] LABS: GLUCOMETER DEV NAME(LOC) 6N 1E; GLUCOSE,POINT OF CARE 209 MG/DL (70-110)
[2018-05-26 08:05] VITALS: BP 121/76
[2018-05-26] MEDS: PANTOPRAZOLE SODIUM 40 MG DR TABLET PO SCH (08:25)
[2018-05-26] MEDS: TRIHEXYPHENIDYL HCL 2 MG TABLET PO SCH (08:25)
[2018-05-26] MEDS: DOCUSATE SODIUM 100 MG CAPSULE PO SCH ×2 (08:26→21:00)
[2018-05-26] MEDS: GuaiFENesin/D-METHORPHAN [SUGAR-FREE] 200-20MG/10 ML SYRUP UDCUP PO PRN ×2 (11:00→18:27)
[2018-05-26 12:06] VITALS: BP 124/74
[2018-05-26 14:14] LABS: GLUCOMETER DEV NAME(LOC) 6N 2D; GLUCOSE,POINT OF CARE 121 MG/DL (70-110)
[2018-05-26] MEDS: CefoTEtan DISOD 2 GM/DEXTROSE 50 ML IV SCH (14:58)
[2018-05-26] MEDS: ALBUTEROL SULFATE 2.5 MG/0.5 ML NEB SOLUTION NEB PRN (15:15)
[2018-05-26 16:32] VITALS: BP 107/54
[2018-05-26] MEDS ORDERED: FluPHENAZine HCL 5 MG TABLET PO PRN (16:45)
[2018-05-26] MEDS ORDERED: FluPHENAZine DECANOATE 25 MG/ML IM ONE (16:45)
[2018-05-26 20:04] LABS: GLUCOMETER DEV NAME(LOC) 6N 2D; GLUCOSE,POINT OF CARE 155 MG/DL (70-110)
[2018-05-26 20:06] VITALS: BP 120/79
[2018-05-26] MEDS: TOPIRAMATE 100 MG TABLET PO SCH (21:42)
[2018-05-26] MEDS: TRIHEXYPHENIDYL HCL 5 MG TABLET PO SCH (21:42)
[2018-05-26 22:53] LABS: GLUCOMETER DEV NAME(LOC) 6N 1E; GLUCOSE,POINT OF CARE 124 MG/DL (70-110)
[2018-05-27 00:22] VITALS: BP 112/68
[2018-05-27 04:00] VITALS: BP 143/89
[2018-05-27] MEDS: GuaiFENesin/D-METHORPHAN [SUGAR-FREE] 200-20MG/10 ML SYRUP UDCUP PO PRN (04:21)
[2018-05-27] MEDS: GlipiZIDE 5 MG TABLET PO SCH (06:51)
[2018-05-27] MEDS: INSULIN LISPRO 100 UNITS/ML SQ PRN (06:51)
[2018-05-27 07:14] LABS: GLUCOMETER DEV NAME(LOC) 6N 1E; GLUCOSE,POINT OF CARE 174 MG/DL (70-110)
[2018-05-27 07:45] VITALS: BP 114/70
[2018-05-27] MEDS: TRIHEXYPHENIDYL HCL 5 MG TABLET PO SCH (08:29)
[2018-05-27] MEDS: PANTOPRAZOLE SODIUM 40 MG DR TABLET PO SCH (08:30)
[2018-05-27] MEDS: DOCUSATE SODIUM 100 MG CAPSULE PO SCH (08:32)
[2018-05-27] MEDS ORDERED: 0.9% SODIUM CHLORIDE 5 ML NEB SOLUTION NEB ONE (10:35)
[2018-05-27] MEDS: ALBUTEROL SULFATE 2.5 MG/0.5 ML NEB SOLUTION NEB PRN (10:39)
[2018-05-27 11:25] VITALS: BP 120/76
[2018-05-27] MEDS: CefoTEtan DISOD 2 GM/DEXTROSE 50 ML IV SCH (13:03)
[2018-05-27 14:22] LABS: GLUCOMETER DEV NAME(LOC) 6N 1E; GLUCOSE,POINT OF CARE 105 MG/DL (70-110)
[2018-05-27] MEDS ORDERED: CEFO1I IM (14:34)
[2018-05-27] MEDS ORDERED: FLUD25I IM (14:34)
[2018-05-27] MEDS ORDERED: GLIP5 PO (14:35)
[2018-06-09] MEDS ORDERED: FluPHENAZine DECANOATE 25 MG/ML IM SCH (09:00)
== END 2018-05-27 15:10 | disposition home or self-care (01) | DRG 720 ==
LOC: EMS 18:35 → 6N 21:01
PROVIDERS: ADMIT Internal Medicine; ATTEND Internal Medicine
DX: A41.9 Sepsis, unspecified organism (principal); N17.9 Acute kidney failure, unspecified; E11.65 Type 2 diabetes mellitus with hyperglycemia; E66.01 Morbid (severe) obesity due to excess calories; E66.9 Obesity, unspecified; N39.0 Urinary tract infection, site not specified; B96.20 Unspecified Escherichia coli [E. coli] as the cause of diseases classified elsewhere; E86.0 Dehydration; I10 Essential (primary) hypertension; F20.0 Paranoid schizophrenia; Z16.12 Extended spectrum beta lactamase (ESBL) resistance; I34.1 Nonrheumatic mitral (valve) prolapse; J45.909 Unspecified asthma, uncomplicated; Z79.4 Long term (current) use of insulin; Z87.440 Personal history of urinary (tract) infections; Z91.19 Patient's noncompliance with other medical treatment and regimen; Z88.8 Allergy status to other drugs, medicaments and biological substances; Z79.899 Other long term (current) drug therapy; Z82.5 Family history of asthma and other chronic lower respiratory diseases; Z68.34 Body mass index [BMI] 34.0-34.9, adult
CPT/HCPCS: 36245; 76937; 83036; 83605; 87040; 87086; 87205; 87804; 94640; 96374; 99291; J0456; J0696; J1335; J1815; J2405; J2680; J3490; J7030; J7050; J7060

== ENCOUNTER 2018-05-28 15:26 | Emergency (ER) | payer OTHER ==
[~2018-05-28] VITALS: Ht 170.2 cm; Wt 90.5 kg
[~2018-05-28 15:26] MED LIST changes: +CEFO1I IM; +FLUD25I IM; +GLIP5 PO; -ILOP2TAB2 PO
[2018-05-28 15:29] VITALS: BP 123/90
[2018-05-28 15:44] LABS: GLUCOSE,POINT OF CARE 161 MG/DL (70-110)
== END 2018-05-28 17:42 | disposition home or self-care (01) ==
LOC: EMS 15:28
DX: T82.898A Other specified complication of vascular prosthetic devices, implants and grafts, initial encounter (principal); F41.9 Anxiety disorder, unspecified; F32.9 Major depressive disorder, single episode, unspecified; F20.9 Schizophrenia, unspecified; J45.909 Unspecified asthma, uncomplicated; E11.9 Type 2 diabetes mellitus without complications; I10 Essential (primary) hypertension; Z86.19 Personal history of other infectious and parasitic diseases; Z88.8 Allergy status to other drugs, medicaments and biological substances
CPT/HCPCS: 36245; 76937; 99284

== ENCOUNTER 2018-07-20 00:27 | Inpatient (IN) | payer MEDICAID, OTHER ==
[~2018-07-20] VITALS: Ht 170.2 cm; Wt 91.0 kg
[2018-07-20] MEDS ORDERED: ILOP4TAB2 PO (00:44)
[2018-07-20] MEDS ORDERED: METF-960 PO (00:44)
[2018-07-20 00:58] LABS: GLUCOSE,POINT OF CARE 325 MG/DL (70-110)
[2018-07-20 01:42] LABS: BASOPHILS % (AUTO) 0.5 % (0.0-2.0); EOSINOPHILS % (AUTO) 0.2 % (1.0-6.0); HEMATOCRIT 32.5 % (36-46); LYMPHOCYTES # (AUTO) 1.9 K/uL (1.0-4.8); LYMPHOCYTES % (AUTO) 24.4 % (22.0-44.0); MEAN CORPUSCULAR HEMOGLOBIN 28.4 pg (26.0-34.0); MEAN CORPUSCULAR HGB CONC 33.8 G/dL (31.0-37.0); MEAN CORPUSCULAR VOLUME 84 fL (80-100); MONOCYTES # (AUTO) 0.7 K/uL (0.1-1.0); MONOCYTES % (AUTO) 9.4 % (2.0-9.0); NEUTROPHILS % (AUTO) 65.5 % (40.0-70.0); PLATELET COUNT (AUTO) 193 K/uL (150-450); RED BLOOD CELL COUNT(AUTO) 3.88 MIL/uL (4.00-5.20); RED CELL DISTRIBUTION WIDTH 16.6 % (11.5-14.5)
[2018-07-20 01:47] LABS: ANION GAP 9 mmol/L (8-16); CALCIUM, TOTAL 9.4 mg/dL (8.8-10.5); CARBON DIOXIDE 26 mmol/L (22-29); CHLORIDE 101 mmol/L (98-107); CREATININE 1.23 mg/dL (0.60-1.30); GLOMERULAR FILTR. RATE CALC 51 mL/min (>60); GLUCOSE,RANDOM 316 mg/dL (70-110); POTASSIUM 4.3 mmol/L (3.5-5.1); SODIUM SERUM 136 mmol/L (136-145); UREA NITROGEN, BLOOD 17 mg/dL (7-18)
[2018-07-20 01:53] LABS: ALANINE AMINOTRANSFERASE 17 U/L (12-78); ALBUMIN 4.2 g/dL (3.4-5.0); ALKALINE PHOSPHATASE 71 U/L (46-116); BILIRUBIN,TOTAL 0.6 mg/dL (0.1-1.0)
[2018-07-20 02:06] LABS: ASPARTATE AMINOTRANSFERASE < 5 U/L (15-37)
[2018-07-20 02:38] LABS: AMPHET/METH SCREEN,URINE NEGATIVE (NEGATIVE); BARBITURATE SCREEN, URINE NEGATIVE (NEGATIVE); BENZODIAZEPINES SCREEN,URINE NEGATIVE (NEGATIVE); CANNABINOID SCREEN,URINE NEGATIVE (NEGATIVE); COCAINE SCREEN,URINE NEGATIVE (NEGATIVE); METHADONE SCREEN, URINE NEGATIVE (NEGATIVE); OPIATE SCREEN,URINE NEGATIVE (NEGATIVE); PHENCYCLIDINE SCREEN,URINE NEGATIVE (NEGATIVE)
[2018-07-20] MEDS ORDERED: MetFORMIN HCL 500 MG TABLET PO ONE (03:30)
[2018-07-20 03:59] LABS: GLUCOSE,POINT OF CARE 278 MG/DL (70-110)
[2018-07-20] MEDS ORDERED: LORazepam 2 MG TABLET PO PRN (08:30)
[2018-07-20] MEDS ORDERED: QUEtiapine FUMARATE 100 MG TABLET PO PRN (08:30)
[2018-07-20 09:43] LABS: GLUCOSE,POINT OF CARE 259 MG/DL (70-110)
[2018-07-20 11:34] VITALS: BP 120/85
[2018-07-20 12:28] LABS: GLUCOSE,POINT OF CARE 261 MG/DL (70-110)
[2018-07-20] MEDS ORDERED: TRIH5TAB2 PO (13:44)
[2018-07-20] MEDS ORDERED: TUBERCULIN, PURIFIED PROTEIN DERIVATIVE 5 TU/0.1 ML SYG ID ONE (13:45)
[2018-07-20] MEDS ORDERED: PROMETHAZINE HCL 25 MG TABLET PO PRN (13:45)
[2018-07-20] MEDS ORDERED: LOPERAMIDE HCL 2 MG CAPSULE PO PRN (13:45)
[2018-07-20] MEDS ORDERED: MAG HYDROX/AL HYDROX/SIMETH ES 30 ML SUSPENSION UDCUP PO PRN (13:45)
[2018-07-20] MEDS ORDERED: FluPHENAZine HCL 5 MG TABLET PO PRN (13:45)
[2018-07-20] MEDS ORDERED: GuaiFENesin/D-METHORPHAN [SUGAR-FREE] 200-20MG/10 ML SYRUP UDCUP PO PRN (13:45)
[2018-07-20] MEDS ORDERED: ACETAMINOPHEN 325 MG TABLET PO PRN (13:45)
[2018-07-20] MEDS ORDERED: MAGNESIUM HYDROXIDE SUSPENSION 30 ML UDCUP PO PRN (13:45)
[2018-07-20] MEDS ORDERED: HydrOXYzine PAMOATE 50 MG CAPSULE PO PRN (13:45)
[2018-07-20] MEDS ORDERED: ESZOPICLONE 3 MG TABLET PO PRN (16:00)
[2018-07-20] MEDS ORDERED: DEXTROSE 50%-WATER 25 GM/50 ML SYRINGE IVP PRN (16:15)
[2018-07-20 17:23] LABS: GLUCOSE,POINT OF CARE 168 MG/DL (70-110)
[2018-07-20] MEDS: INSULIN LISPRO 100 UNITS/ML SQ PRN ×2 (17:41→21:19)
[2018-07-20] MEDS: PredniSONE 20 MG TABLET PO SCH (18:29)
[2018-07-20] MEDS: FluPHENAZine HCL 10 MG TABLET PO SCH (20:53)
[2018-07-20] MEDS: THIAMINE HCL 100 MG TABLET PO SCH (20:55)
[2018-07-20 21:11] VITALS: BP 116/66
[2018-07-20 21:53] LABS: GLUCOSE,POINT OF CARE 274 MG/DL (70-110)
[2018-07-21 05:19] LABS: HEMOGLOBIN A1C 6.8 % (4.5-6.2)
[2018-07-21 05:30] LABS: CHOL/HDL RATIO 6.1 (3.9-5.7); CHOLESTEROL 189 mg/dL (131-200); FREE T4 (FREE THYROXINE) 0.88 ng/dL (0.76-1.46); HCG,QUANTITATIVE < 1 mIU/mL (0-6); HDL CHOLESTEROL 31 mg/dL (40-60); LDL CHOL (CALC.) 84 mg/dL (0-130); THYROID STIMULATING HORMONE 0.97 uIU/mL (0.36-3.74); TRIGLYCERIDES 369 mg/dL (15-150)
[2018-07-21 06:44] LABS: GLUCOSE,POINT OF CARE 247 MG/DL (70-110)
[2018-07-21] MEDS: INSULIN LISPRO 100 UNITS/ML SQ PRN ×4 (06:56→22:00)
[2018-07-21] MEDS: MULTIVITAMINS WITH MINERALS, THERAPEUTIC TABLET PO SCH (08:32)
[2018-07-21] MEDS: THIAMINE HCL 100 MG TABLET PO SCH (08:32)
[2018-07-21] MEDS: MetFORMIN HCL 500 MG TABLET PO SCH ×2 (08:33→17:41)
[2018-07-21] MEDS: FOLIC ACID 1 MG TABLET PO SCH (08:33)
[2018-07-21] MEDS: PredniSONE 20 MG TABLET PO SCH (08:33)
[2018-07-21 09:00] VITALS: BP 105/63
[2018-07-21 11:23] LABS: GLUCOSE,POINT OF CARE 215 MG/DL (70-110)
[2018-07-21] MEDS ORDERED: PERMETHRIN 5% 60 GM CREAM TP ONE (13:15)
[2018-07-21 17:18] LABS: GLUCOMETER DEV NAME(LOC) 3EI C; GLUCOSE,POINT OF CARE 282 MG/DL (70-110)
[2018-07-21] MEDS ORDERED: ARIPiprazole 5 MG TABLET PO SCH (21:00)
[2018-07-21] MEDS: FluPHENAZine HCL 10 MG TABLET PO SCH (21:34)
[2018-07-21] MEDS: DiphenhydrAMINE HCL 25 MG CAPSULE PO SCH (21:34)
[2018-07-21 22:13] LABS: GLUCOMETER DEV NAME(LOC) 3EI C; GLUCOSE,POINT OF CARE 184 MG/DL (70-110)
[2018-07-21 22:21] VITALS: BP 122/74
[2018-07-22 06:07] VITALS: BP 120/89
[2018-07-22] MEDS ORDERED: PNEUMOCOCCAL VACCINE POLYVALENT 0.5 ML VIAL [PPSV23] IM ONE (06:15)
[2018-07-22 06:19] LABS: GLUCOMETER DEV NAME(LOC) 3EI C; GLUCOSE,POINT OF CARE 185 MG/DL (70-110)
[2018-07-22] MEDS: INSULIN LISPRO 100 UNITS/ML SQ PRN ×3 (06:48→21:04)
[2018-07-22] MEDS: MetFORMIN HCL 500 MG TABLET PO SCH ×2 (07:03→16:19)
[2018-07-22 08:22] VITALS: BP 125/91
[2018-07-22] MEDS: MULTIVITAMINS WITH MINERALS, THERAPEUTIC TABLET PO SCH (10:49)
[2018-07-22] MEDS: FOLIC ACID 1 MG TABLET PO SCH (10:49)
[2018-07-22] MEDS: THIAMINE HCL 100 MG TABLET PO SCH ×2 (10:49→16:18)
[2018-07-22] MEDS: PredniSONE 20 MG TABLET PO SCH (10:50)
[2018-07-22 11:33] LABS: GLUCOMETER DEV NAME(LOC) 3EI C; GLUCOSE,POINT OF CARE 136 MG/DL (70-110)
[2018-07-22 17:43] LABS: GLUCOMETER DEV NAME(LOC) 3EI C; GLUCOSE,POINT OF CARE 265 MG/DL (70-110)
[2018-07-22 18:00] VITALS: BP 120/78
[2018-07-22] MEDS: DiphenhydrAMINE HCL 25 MG CAPSULE PO SCH (20:41)
[2018-07-22] MEDS ORDERED: FluPHENAZine HCL 5 MG TABLET PO SCH (21:00)
[2018-07-22 21:18] LABS: GLUCOMETER DEV NAME(LOC) 3EI C; GLUCOSE,POINT OF CARE 210 MG/DL (70-110)
[2018-07-23 06:08] LABS: GLUCOMETER DEV NAME(LOC) 3EI C; GLUCOSE,POINT OF CARE 193 MG/DL (70-110)
[2018-07-23] MEDS: MetFORMIN HCL 500 MG TABLET PO SCH ×2 (06:51→16:28)
[2018-07-23] MEDS: INSULIN LISPRO 100 UNITS/ML SQ PRN ×4 (06:54→21:20)
[2018-07-23 08:03] VITALS: BP 135/79
[2018-07-23] MEDS: FOLIC ACID 1 MG TABLET PO SCH (08:54)
[2018-07-23] MEDS: THIAMINE HCL 100 MG TABLET PO SCH ×2 (08:54→16:29)
[2018-07-23] MEDS: MULTIVITAMINS WITH MINERALS, THERAPEUTIC TABLET PO SCH (08:54)
[2018-07-23] MEDS: PredniSONE 20 MG TABLET PO SCH (08:54)
[2018-07-23 11:53] LABS: GLUCOMETER DEV NAME(LOC) 3EI C; GLUCOSE,POINT OF CARE 187 MG/DL (70-110)
[2018-07-23 16:33] LABS: GLUCOMETER DEV NAME(LOC) 3EI C; GLUCOSE,POINT OF CARE 242 MG/DL (70-110)
[2018-07-23 17:00] VITALS: BP 149/97
[2018-07-23 19:46] VITALS: BP 123/78
[2018-07-23] MEDS: DiphenhydrAMINE HCL 25 MG CAPSULE PO SCH (20:39)
[2018-07-23 20:53] LABS: GLUCOMETER DEV NAME(LOC) 3EI C; GLUCOSE,POINT OF CARE 208 MG/DL (70-110)
[2018-07-23] MEDS ORDERED: FluPHENAZine HCL 5 MG TABLET PO SCH (21:00)
[2018-07-24 05:33] LABS: GLUCOMETER DEV NAME(LOC) 3EI C; GLUCOSE,POINT OF CARE 160 MG/DL (70-110)
[2018-07-24] MEDS: MetFORMIN HCL 500 MG TABLET PO SCH (06:42)
[2018-07-24] MEDS: INSULIN LISPRO 100 UNITS/ML SQ PRN ×2 (06:46→11:49)
[2018-07-24] MEDS: MULTIVITAMINS WITH MINERALS, THERAPEUTIC TABLET PO SCH (08:30)
[2018-07-24] MEDS: FOLIC ACID 1 MG TABLET PO SCH (08:30)
[2018-07-24] MEDS: PredniSONE 20 MG TABLET PO SCH (08:30)
[2018-07-24] MEDS: THIAMINE HCL 100 MG TABLET PO SCH (08:30)
[2018-07-24] MEDS ORDERED: FLUP10 PO (09:36)
[2018-07-24] MEDS ORDERED: DIPH25 PO (09:36)
[2018-07-24] MEDS ORDERED: PRED20 PO (09:41)
[2018-07-24 11:03] LABS: GLUCOMETER DEV NAME(LOC) 3EI C; GLUCOSE,POINT OF CARE 204 MG/DL (70-110)
[2018-07-24 11:17] VITALS: BP 110/89
== END 2018-07-24 12:25 | disposition home or self-care (01) | DRG 750 ==
LOC: EMS 00:31 → AHU 11:14 → 3EI 07-21 17:00
PROVIDERS: ADMIT Psychiatry & Neurology Psychiatry; ATTEND Psychiatry & Neurology Psychiatry
DX: F25.0 Schizoaffective disorder, bipolar type (principal); E11.9 Type 2 diabetes mellitus without complications; B86 Scabies; D64.9 Anemia, unspecified; F89 Unspecified disorder of psychological development; E66.9 Obesity, unspecified; J45.909 Unspecified asthma, uncomplicated; Z28.21 Immunization not carried out because of patient refusal; Z83.3 Family history of diabetes mellitus; I10 Essential (primary) hypertension; L20.9 Atopic dermatitis, unspecified; Z81.8 Family history of other mental and behavioral disorders; Z91.19 Patient's noncompliance with other medical treatment and regimen; Z88.8 Allergy status to other drugs, medicaments and biological substances; Z91.013 Allergy to seafood
CPT/HCPCS: 80074; 83036; 84439; 84443; G0480; G0481; J1815

== ENCOUNTER 2018-09-11 15:37 | Emergency (ER) | payer MEDICAID, OTHER ==
[~2018-09-11] VITALS: Ht 170.2 cm; Wt 112.2 kg
[~2018-09-11 15:37] MED LIST changes: -CEFO1I IM; +DIPH25 PO; -FLUD25I IM; +FLUP10 PO; -GLIP5 PO; +METF-960 PO; +PRED20 PO; -TOPI100T37 PO; -TRIH2TAB3 PO
[2018-09-11 15:54] LABS: GLUCOSE,POINT OF CARE 100 MG/DL (70-110)
[2018-09-11] MEDS ORDERED: 0.9% SODIUM CHLORIDE 10 ML SYRINGE IVP PRN (17:45)
[2018-09-11] MEDS ORDERED: ACETAMINOPHEN 500 MG TABLET PO ONE (17:45)
[2018-09-11 18:14] LABS: BASOPHILS % (AUTO) 0.7 % (0.0-2.0); EOSINOPHILS % (AUTO) 0.2 % (1.0-6.0); HEMATOCRIT 35.3 % (36-46); HEMOGLOBIN 11.7 g/dL (12.0-16.0); LYMPHOCYTES # (AUTO) 2.4 K/uL (1.0-4.8); LYMPHOCYTES % (AUTO) 27.1 % (22.0-44.0); MEAN CORPUSCULAR HEMOGLOBIN 26.8 pg (26.0-34.0); MEAN CORPUSCULAR HGB CONC 33.2 G/dL (31.0-37.0); MEAN CORPUSCULAR VOLUME 81 fL (80-100); MONOCYTES # (AUTO) 0.6 K/uL (0.1-1.0); MONOCYTES % (AUTO) 7.2 % (2.0-9.0); NEUTROPHILS # (AUTO) 5.8 K/uL (1.8-7.7); NEUTROPHILS % (AUTO) 64.8 % (40.0-70.0); PLATELET COUNT (AUTO) 267 K/uL (150-450); RED BLOOD CELL COUNT(AUTO) 4.38 MIL/uL (4.00-5.20); RED CELL DISTRIBUTION WIDTH 14.7 % (11.5-14.5)
[2018-09-11 18:20] LABS: APPEARANCE,URINE CLEAR (CLEAR); BILIRUBIN,URINE NEGATIVE (NEGATIVE); GLUCOSE, URINE (UA) NEGATIVE (NEGATIVE); KETONES,URINE NEGATIVE (NEGATIVE); LEUKOCYTE ESTERASE ,URINE NEGATIVE (NEGATIVE); NITRATE,URINE NEGATIVE (NEGATIVE); OCCULT BLOOD,URINE NEGATIVE (NEGATIVE); PH,URINE 5.5 (5.0-8.0); PROTEIN,URINE NEGATIVE (NEGATIVE); UROBILINOGEN,URINE 0.2 mg/dL (<=1.0)
[2018-09-11 18:28] LABS: CHLORIDE 102 mmol/L (98-107); GLUCOSE,RANDOM 128 mg/dL (70-110); POTASSIUM 3.7 mmol/L (3.5-5.1); PROTHROMBIN TIME 10.3 SEC (9.4-11.6); SODIUM SERUM 139 mmol/L (136-145); UREA NITROGEN, BLOOD 20 mg/dL (7-18)
[2018-09-11 18:29] LABS: ANION GAP 11 mmol/L (8-16); CALCIUM, TOTAL 9.6 mg/dL (8.8-10.5); CARBON DIOXIDE 26 mmol/L (22-29); CREATININE 1.06 mg/dL (0.60-1.30); GLOMERULAR FILTR. RATE CALC 60 mL/min (>60)
[2018-09-11 18:37] LABS: LACTIC ACID 1.3 mmol/L (0.4-2.0)
[2018-09-11 18:43] LABS: B-TYPE NATRIURETIC PEPTIDE < 5 pg/mL (0-100)
[2018-09-11 19:05] LABS: ALANINE AMINOTRANSFERASE 27 U/L (12-78); ALBUMIN 4.3 g/dL (3.4-5.0); ALKALINE PHOSPHATASE 44 U/L (46-116); ASPARTATE AMINOTRANSFERASE 17 U/L (15-37); BILIRUBIN,TOTAL 0.3 mg/dL (0.1-1.0); CREATINE KINASE, TOTAL ONLY 119 U/L (26-192); HCG,QUANTITATIVE < 1 mIU/mL (0-6)
[2018-09-11 20:52] LABS: INFLUENZA TYPE A NEGATIVE FOR TYPE A (NEGATIVE); INFLUENZA TYPE B NEGATIVE FOR TYPE B (NEGATIVE)
[2018-09-11 22:23] VITALS: BP 138/96
[2018-09-11] MEDS ORDERED: SULFAMETHOX/TRIMETH DS 800-160 MG/TABLET PO ONE (22:30)
[2018-09-11] MEDS ORDERED: CEPHALEXIN MONOHYDRATE 500 MG CAPSULE PO ONE (22:30)
== END 2018-09-11 22:43 | disposition home or self-care (01) ==
LOC: EMS 15:38
DX: R21 Rash and other nonspecific skin eruption (principal); R50.9 Fever, unspecified; F20.9 Schizophrenia, unspecified; I10 Essential (primary) hypertension; E11.9 Type 2 diabetes mellitus without complications; J45.909 Unspecified asthma, uncomplicated; F41.9 Anxiety disorder, unspecified; Z88.8 Allergy status to other drugs, medicaments and biological substances; Z79.84 Long term (current) use of oral hypoglycemic drugs
CPT/HCPCS: 36415; 80053; 81003; 82550; 82962; 83605; 83880; 84145; 84702; 85025; 85610; 85730; 87040; 87804; 93005; 99285; X7700

== ENCOUNTER 2018-10-21 15:49 | Emergency (ER) | payer OTHER ==
[~2018-10-21] VITALS: Ht 170.2 cm; Wt 109.5 kg
[~2018-10-21 15:49] MED LIST changes: -PRED20 PO
[2018-10-21 16:13] LABS: GLUCOSE,POINT OF CARE 148 MG/DL (70-110)
[2018-10-21] MEDS ORDERED: ACETAMINOPHEN 500 MG TABLET PO ONE (18:30)
[2018-10-21] MEDS ORDERED: IBUPROFEN 600 MG TABLET PO ONE (18:30)
[2018-10-21 19:15] VITALS: BP 130/76
== END 2018-10-21 19:24 | disposition home or self-care (01) ==
LOC: EMS 15:51
DX: H66.91 Otitis media, unspecified, right ear (principal); R05 Cough; E11.9 Type 2 diabetes mellitus without complications; I10 Essential (primary) hypertension; J45.909 Unspecified asthma, uncomplicated; F20.9 Schizophrenia, unspecified; F32.9 Major depressive disorder, single episode, unspecified; Z79.899 Other long term (current) drug therapy; Z91.018 Allergy to other foods; Z91.09 Other allergy status, other than to drugs and biological substances

== ENCOUNTER 2018-11-03 06:59 | Emergency (ER) | payer OTHER ==
[~2018-11-03] VITALS: Ht 167.6 cm; Wt 109.1 kg
[2018-11-03 07:24] LABS: GLUCOSE,POINT OF CARE 158 MG/DL (70-110)
[2018-11-03 09:02] VITALS: BP 125/82
== END 2018-11-03 09:26 | disposition home or self-care (01) ==
LOC: EMS 07:00
DX: J32.9 Chronic sinusitis, unspecified (principal); J45.909 Unspecified asthma, uncomplicated; I10 Essential (primary) hypertension; E11.9 Type 2 diabetes mellitus without complications; F20.9 Schizophrenia, unspecified; F41.9 Anxiety disorder, unspecified; F32.9 Major depressive disorder, single episode, unspecified; Z88.8 Allergy status to other drugs, medicaments and biological substances; Z91.018 Allergy to other foods

== ENCOUNTER 2018-11-09 15:16 | Emergency (ER) | payer OTHER ==
[~2018-11-09] VITALS: Ht 167.6 cm; Wt 109.1 kg
[2018-11-09 15:33] LABS: GLUCOSE,POINT OF CARE 133 MG/DL (70-110)
[2018-11-09] MEDS ORDERED: ACETAMINOPHEN 500 MG TABLET PO ONE (19:30)
[2018-11-09 19:55] LABS: BASOPHILS % (AUTO) 0.4 % (0.0-2.0); EOSINOPHILS % (AUTO) 0.2 % (1.0-6.0); HEMATOCRIT 33.8 % (36-46); HEMOGLOBIN 11.5 g/dL (12.0-16.0); LYMPHOCYTES # (AUTO) 1.7 K/uL (1.0-4.8); MEAN CORPUSCULAR HEMOGLOBIN 27.1 pg (26.0-34.0); MEAN CORPUSCULAR VOLUME 80 fL (80-100); MONOCYTES # (AUTO) 1.1 K/uL (0.1-1.0); MONOCYTES % (AUTO) 10.3 % (2.0-9.0); NEUTROPHILS # (AUTO) 7.8 K/uL (1.8-7.7); NEUTROPHILS % (AUTO) 73.1 % (40.0-70.0); PLATELET COUNT (AUTO) 251 K/uL (150-450); RED BLOOD CELL COUNT(AUTO) 4.24 MIL/uL (4.00-5.20); RED CELL DISTRIBUTION WIDTH 14.7 % (11.5-14.5)
[2018-11-09 20:14] LABS: CALCIUM, TOTAL 9.6 mg/dL (8.8-10.5); CREATININE 1.07 mg/dL (0.60-1.30); POTASSIUM 3.5 mmol/L (3.5-5.1)
[2018-11-09] MEDS ORDERED: GuaiFENesin/D-METHORPHAN [SUGAR-FREE] 200-20MG/10 ML SYRUP UDCUP PO ONE (20:15)
[2018-11-09 20:21] LABS: ALBUMIN 3.8 g/dL (3.4-5.0); BILIRUBIN,TOTAL 0.5 mg/dL (0.1-1.0); TOTAL PROTEIN, SERUM 7.9 g/dL (6.4-8.2)
[2018-11-09 22:13] VITALS: BP 132/86
== END 2018-11-09 22:18 | disposition home or self-care (01) ==
LOC: EMS 15:17
DX: J40 Bronchitis, not specified as acute or chronic (principal); J45.909 Unspecified asthma, uncomplicated; E11.9 Type 2 diabetes mellitus without complications; F41.9 Anxiety disorder, unspecified; F32.9 Major depressive disorder, single episode, unspecified; I10 Essential (primary) hypertension; F20.9 Schizophrenia, unspecified; Z88.8 Allergy status to other drugs, medicaments and biological substances; Z91.013 Allergy to seafood
CPT/HCPCS: 87430

== ENCOUNTER 2019-06-18 16:39 | Emergency (ER) | payer OTHER ==
[~2019-06-18] VITALS: Ht 167.6 cm; Wt 109.0 kg
[2019-06-18] MEDS ORDERED: METF-960 PO (16:54)
[2019-06-18 17:11] LABS: GLUCOSE,POINT OF CARE 160 MG/DL (70-110)
[2019-06-18 18:10] LABS: BASOPHILS % (AUTO) 0.5 % (0.0-2.0); EOSINOPHILS % (AUTO) 0.8 % (1.0-6.0); HEMATOCRIT 37.3 % (36-46); HEMOGLOBIN 12.3 g/dL (12.0-16.0); LYMPHOCYTES # (AUTO) 2.2 K/uL (1.0-4.8); LYMPHOCYTES % (AUTO) 26.3 % (22.0-44.0); MEAN CORPUSCULAR HEMOGLOBIN 26.6 pg (26.0-34.0); MEAN CORPUSCULAR HGB CONC 33.1 G/dL (31.0-37.0); MEAN CORPUSCULAR VOLUME 80 fL (80-100); MONOCYTES # (AUTO) 0.7 K/uL (0.1-1.0); MONOCYTES % (AUTO) 8.7 % (2.0-9.0); NEUTROPHILS # (AUTO) 5.4 K/uL (1.8-7.7); NEUTROPHILS % (AUTO) 63.7 % (40.0-70.0); PLATELET COUNT (AUTO) 249 K/uL (150-450); RED BLOOD CELL COUNT(AUTO) 4.63 MIL/uL (4.00-5.20); RED CELL DISTRIBUTION WIDTH 15.5 % (11.5-14.5)
[2019-06-18 18:30] LABS: CALCIUM, TOTAL 9.8 mg/dL (8.8-10.5); CREATININE 1.17 mg/dL (0.60-1.30)
[2019-06-18 18:34] LABS: ALBUMIN 3.7 g/dL (3.4-5.0); BILIRUBIN,TOTAL 0.3 mg/dL (0.1-1.0); TOTAL PROTEIN, SERUM 7.7 g/dL (6.4-8.2)
[2019-06-18 19:22] VITALS: BP 130/68
== END 2019-06-18 19:23 | disposition home or self-care (01) ==
LOC: EMS 16:40
DX: J40 Bronchitis, not specified as acute or chronic (principal); E11.9 Type 2 diabetes mellitus without complications; I10 Essential (primary) hypertension; J45.909 Unspecified asthma, uncomplicated; F20.9 Schizophrenia, unspecified; Z88.8 Allergy status to other drugs, medicaments and biological substances; Z91.013 Allergy to seafood; Z79.84 Long term (current) use of oral hypoglycemic drugs

== ENCOUNTER 2019-08-19 09:45 | Inpatient (IN) | payer OTHER ==
[~2019-08-19] VITALS: Ht 167.6 cm; Wt 110.0 kg
[~2019-08-19 09:45] MED LIST changes: -DIPH25 PO; -FLUP10 PO
[2019-08-19] MEDS ORDERED: SODIUM CHLORIDE 0.9% 2,200 ML IV ONE (10:15)
[2019-08-19] MEDS ORDERED: ACETAMINOPHEN 500 MG TABLET PO ONE (10:15)
[2019-08-19 10:22] LABS: GLUCOSE,POINT OF CARE 206 MG/DL (70-110)
[2019-08-19 11:40] LABS: BASOPHILS % (AUTO) 0.4 % (0.0-2.0); EOSINOPHILS % (AUTO) 0.2 % (1.0-6.0); HEMATOCRIT 36.7 % (36-46); HEMOGLOBIN 12.1 g/dL (12.0-16.0); LYMPHOCYTES # (AUTO) 0.9 K/uL (1.0-4.8); MEAN CORPUSCULAR HEMOGLOBIN 26.3 pg (26.0-34.0); MEAN CORPUSCULAR VOLUME 80 fL (80-100); MONOCYTES # (AUTO) 1.3 K/uL (0.1-1.0); MONOCYTES % (AUTO) 15.5 % (2.0-9.0); NEUTROPHILS # (AUTO) 6.1 K/uL (1.8-7.7); NEUTROPHILS % (AUTO) 72.9 % (40.0-70.0); PLATELET COUNT (AUTO) 219 K/uL (150-450); RED BLOOD CELL COUNT(AUTO) 4.61 MIL/uL (4.00-5.20); RED CELL DISTRIBUTION WIDTH 14.9 % (11.5-14.5)
[2019-08-19 11:45] LABS: INFLUENZA TYPE A POSITIVE FOR TYPE A (NEGATIVE); INFLUENZA TYPE B NEGATIVE FOR TYPE B (NEGATIVE)
[2019-08-19 11:50] LABS: ANION GAP 13 mmol/L (8-16); CARBON DIOXIDE 22 mmol/L (22-29); CHLORIDE 102 mmol/L (98-107); CREATININE 1.03 mg/dL (0.60-1.30); GLUCOSE,RANDOM 157 mg/dL (70-110); POTASSIUM 3.4 mmol/L (3.5-5.1); SODIUM SERUM 137 mmol/L (136-145); UREA NITROGEN, BLOOD 12 mg/dL (7-18)
[2019-08-19 11:51] LABS: CALCIUM, TOTAL 8.9 mg/dL (8.8-10.5); GLOMERULAR FILTR. RATE CALC > 60 mL/min (>60)
[2019-08-19 11:57] LABS: LACTIC ACID 1.4 mmol/L (0.4-2.0)
[2019-08-19 12:03] LABS: ALANINE AMINOTRANSFERASE 28 U/L (12-78); ALBUMIN 3.7 g/dL (3.4-5.0); ALKALINE PHOSPHATASE 56 U/L (46-116); ASPARTATE AMINOTRANSFERASE 18 U/L (15-37); BILIRUBIN,TOTAL 0.3 mg/dL (0.1-1.0); TOTAL PROTEIN, SERUM 7.9 g/dL (6.4-8.2)
[2019-08-19] MEDS ORDERED: MAGNESIUM SULFATE 2 GM/WATER 50 ML IV ONE (13:00)
[2019-08-19] MEDS ORDERED: ACETAMINOPHEN 325 MG TABLET PO PRN ×2 (14:15→15:15)
[2019-08-19] MEDS ORDERED: 0.9% SODIUM CHLORIDE 10 ML SYRINGE IVP PRN (14:15)
[2019-08-19] MEDS ORDERED: ONDANSETRON HCL 4 MG/2 ML VIAL IVP PRN ×2 (14:15→15:15)
[2019-08-19 15:01] LABS: GLUCOSE,POINT OF CARE 99 MG/DL (70-110)
[2019-08-19] MEDS ORDERED: MORPHINE SULFATE 2 MG/ML SYRINGE IVP PRN (15:15)
[2019-08-19] MEDS ORDERED: AZITHROMYCIN 500 MG/NS 250 ML IV ONE (15:15)
[2019-08-19] MEDS ORDERED: HYDROCODONE/ACETAMINOPHEN 5-325 MG TABLET PO PRN (15:15)
[2019-08-19] MEDS ORDERED: BISACODYL 10 MG RECTAL RECTAL SUPPOSITORY PR PRN (15:15)
[2019-08-19] MEDS ORDERED: SODIUM CHLORIDE 0.9% 1,000 ML IV ONE (15:15)
[2019-08-19] MEDS ORDERED: MAGNESIUM HYDROXIDE SUSPENSION 30 ML UDCUP PO PRN (15:15)
[2019-08-19] MEDS ORDERED: CefTRIAXone 1 GM/DEXTROSE 50 ML IV ONE (15:15)
[2019-08-19] MEDS: HEPARIN SODIUM,PORCINE 5,000 UNITS/ML VIAL SQ SCH (17:12)
[2019-08-19 18:02] VITALS: BP 133/96
[2019-08-19 20:08] VITALS: BP 114/61
[2019-08-19] MEDS ORDERED: ALBUTEROL SULFATE 2.5 MG/0.5 ML NEB SOLUTION NEB ONE (20:37)
[2019-08-19] MEDS ORDERED: 0.9% SODIUM CHLORIDE 5 ML NEB SOLUTION NEB ONE (20:37)
[2019-08-19] MEDS ORDERED: IPRATROPIUM BROMIDE 0.5 MG/2.5 ML NEB SOLUTION NEB ONE (20:37)
[2019-08-19] MEDS ORDERED: LORazepam 1 MG TABLET PO PRN (20:45)
[2019-08-19] MEDS ORDERED: DEXTROSE 50%-WATER 25 GM/50 ML SYRINGE IVP PRN (20:45)
[2019-08-19] MEDS ORDERED: ALBUTEROL SULFATE 2.5 MG/0.5 ML NEB SOLUTION NEB PRN (20:45)
[2019-08-19] MEDS: MetFORMIN HCL 500 MG TABLET PO SCH (21:00)
[2019-08-19] MEDS: DOCUSATE SODIUM 100 MG CAPSULE PO SCH (21:17)
[2019-08-19] MEDS: FluPHENAZine HCL 10 MG TABLET PO SCH (21:24)
[2019-08-19] MEDS: OSELTAMIVIR PHOSPHATE 75 MG CAPSULE PO SCH (21:24)
[2019-08-19 22:56] LABS: GLUCOMETER DEV NAME(LOC) 5N.1; GLUCOSE,POINT OF CARE 133 MG/DL (70-110)
[2019-08-20] VITALS (7 sets, daily range): BP systolic 87–144; BP diastolic 55–117
[2019-08-20 07:01] LABS: ANION GAP 9 mmol/L (8-16); CALCIUM, TOTAL 7.8 mg/dL (8.8-10.5); CARBON DIOXIDE 25 mmol/L (22-29); CHLORIDE 105 mmol/L (98-107); CREATININE 0.78 mg/dL (0.60-1.30); GLOMERULAR FILTR. RATE CALC > 60 mL/min (>60); GLUCOSE,RANDOM 138 mg/dL (70-110); POTASSIUM 3.6 mmol/L (3.5-5.1); SODIUM SERUM 139 mmol/L (136-145); UREA NITROGEN, BLOOD 9 mg/dL (7-18)
[2019-08-20] MEDS: HEPARIN SODIUM,PORCINE 5,000 UNITS/ML VIAL SQ SCH ×4 (09:15→23:54)
[2019-08-20] MEDS: OSELTAMIVIR PHOSPHATE 75 MG CAPSULE PO SCH ×2 (09:16→20:41)
[2019-08-20] MEDS: PANTOPRAZOLE SODIUM 40 MG DR TABLET PO SCH (09:16)
[2019-08-20] MEDS: DOCUSATE SODIUM 100 MG CAPSULE PO SCH ×2 (09:17→20:42)
[2019-08-20] MEDS: INSULIN LISPRO 100 UNITS/ML SQ PRN ×2 (12:08→17:10)
[2019-08-20 12:26] LABS: GLUCOMETER DEV NAME(LOC) 5N.1; GLUCOSE,POINT OF CARE 127 MG/DL (70-110)
[2019-08-20 12:26] LABS: GLUCOMETER DEV NAME(LOC) 5N.1; GLUCOSE,POINT OF CARE 153 MG/DL (70-110)
[2019-08-20 17:28] LABS: GLUCOMETER DEV NAME(LOC) 5N.1; GLUCOSE,POINT OF CARE 114 MG/DL (70-110)
[2019-08-20] MEDS: FluPHENAZine HCL 10 MG TABLET PO SCH (20:41)
[2019-08-20] MEDS: MetFORMIN HCL 500 MG TABLET PO SCH (20:41)
[2019-08-20 21:35] LABS: GLUCOMETER DEV NAME(LOC) 5S.1; GLUCOSE,POINT OF CARE 181 MG/DL (70-110)
[2019-08-20] MEDS ORDERED: CefTRIAXone 1 GM/DEXTROSE 50 ML IV SCH (22:00)
[2019-08-20] MEDS ORDERED: SODIUM CHLORIDE 0.9% 50 ML ONE (22:57)
[2019-08-20] MEDS ORDERED: AZITHROMYCIN 500 MG/NS 250 ML IV SCH (23:00)
[2019-08-20] MEDS: GuaiFENesin/D-METHORPHAN [SUGAR-FREE] 200-20MG/10 ML SYRUP UDCUP PO PRN (23:02)
[2019-08-21 00:26] VITALS: BP 126/70
[2019-08-21 04:42] VITALS: BP 126/98
[2019-08-21] MEDS: GuaiFENesin/D-METHORPHAN [SUGAR-FREE] 200-20MG/10 ML SYRUP UDCUP PO PRN ×3 (05:00→13:45)
[2019-08-21 06:59] LABS: GLUCOMETER DEV NAME(LOC) 5N.1; GLUCOSE,POINT OF CARE 134 MG/DL (70-110)
[2019-08-21 07:58] VITALS: BP 122/86
[2019-08-21] MEDS: DOCUSATE SODIUM 100 MG CAPSULE PO SCH (09:00)
[2019-08-21] MEDS: HEPARIN SODIUM,PORCINE 5,000 UNITS/ML VIAL SQ SCH (09:13)
[2019-08-21] MEDS: OSELTAMIVIR PHOSPHATE 75 MG CAPSULE PO SCH (09:13)
[2019-08-21] MEDS: PANTOPRAZOLE SODIUM 40 MG DR TABLET PO SCH (09:13)
[2019-08-21] MEDS: INSULIN LISPRO 100 UNITS/ML SQ PRN (11:24)
[2019-08-21 12:02] VITALS: BP 135/95
[2019-08-21 13:05] LABS: GLUCOMETER DEV NAME(LOC) 5S.1; GLUCOSE,POINT OF CARE 229 MG/DL (70-110)
[2019-08-21] MEDS ORDERED: GUAIFDM PO (13:35)
[2019-08-21] MEDS ORDERED: OSEL75 PO (13:35)
[2019-08-21] MEDS ORDERED: BENZ-17 PO (13:35)
[2019-08-21] MEDS ORDERED: CEPH-582 PO (13:35)
[2019-08-21] MEDS ORDERED: AZIT500T4 PO (13:35)
== END 2019-08-21 15:43 | disposition home or self-care (01) | DRG 139 ==
LOC: EMS 09:47 → 5N 14:49
PROVIDERS: ADMIT Internal Medicine; ATTEND Internal Medicine
DX: J11.00 Influenza due to unidentified influenza virus with unspecified type of pneumonia (principal); R65.10 Systemic inflammatory response syndrome (SIRS) of non-infectious origin without acute organ dysfunction; E83.42 Hypomagnesemia; F20.9 Schizophrenia, unspecified; E87.6 Hypokalemia; F41.9 Anxiety disorder, unspecified; I10 Essential (primary) hypertension; E11.9 Type 2 diabetes mellitus without complications; Z88.8 Allergy status to other drugs, medicaments and biological substances; Z91.013 Allergy to seafood
CPT/HCPCS: 83605; 83735; 87040; 87804; 93005; 94640; J0456; J0696; J1644; J3475; J7030; J7050

== ENCOUNTER 2019-12-22 17:29 | Inpatient (IN) | payer MEDICAID, OTHER ==
[~2019-12-22] VITALS: Ht 170.2 cm; Wt 108.6 kg
[~2019-12-22 17:29] MED LIST changes: +AZIT500T4 PO; +BENZ-17 PO; +CEPH-582 PO; +GUAIFDM PO; +OSEL75 PO
[2019-12-22 18:56] LABS: BASOPHILS % (AUTO) 0.2 % (0.0-2.0); EOSINOPHILS % (AUTO) 0 % (1.0-6.0); HEMATOCRIT 37.1 % (36-46); HEMOGLOBIN 12.1 g/dL (12.0-16.0); LYMPHOCYTES % (AUTO) 23.9 % (22.0-44.0); MEAN CORPUSCULAR HEMOGLOBIN 25.5 pg (26.0-34.0); MEAN CORPUSCULAR HGB CONC 32.5 G/dL (31.0-37.0); MEAN CORPUSCULAR VOLUME 79 fL (80-100); MONOCYTES # (AUTO) 0.7 K/uL (0.1-1.0); NEUTROPHILS # (AUTO) 5.6 K/uL (1.8-7.7); NEUTROPHILS % (AUTO) 67.9 % (40.0-70.0); PLATELET COUNT (AUTO) 201 K/uL (150-450); RED BLOOD CELL COUNT(AUTO) 4.73 MIL/uL (4.00-5.20); RED CELL DISTRIBUTION WIDTH 15.6 % (11.5-14.5)
[2019-12-22 19:20] LABS: ANION GAP 12 mmol/L (8-16); CALCIUM, TOTAL 8.8 mg/dL (8.8-10.5); CARBON DIOXIDE 25 mmol/L (22-29); CHLORIDE 103 mmol/L (98-107); CREATININE 1.07 mg/dL (0.60-1.30); GLOMERULAR FILTR. RATE CALC 59 mL/min (>60); GLUCOSE,RANDOM 164 mg/dL (70-110); POTASSIUM 3.6 mmol/L (3.5-5.1); SODIUM SERUM 140 mmol/L (136-145); UREA NITROGEN, BLOOD 17 mg/dL (7-18)
[2019-12-22 19:26] LABS: ALANINE AMINOTRANSFERASE 21 U/L (12-78); ALKALINE PHOSPHATASE 71 U/L (46-116); ASPARTATE AMINOTRANSFERASE < 5 U/L (15-37); BILIRUBIN,TOTAL 0.2 mg/dL (0.1-1.0); TOTAL PROTEIN, SERUM 7.8 g/dL (6.4-8.2)
[2019-12-22 21:41] LABS: HCG,QUANTITATIVE < 1 mIU/mL (0-6)
[2019-12-22 21:43] LABS: APPEARANCE,URINE CLEAR (CLEAR); BILIRUBIN,URINE NEGATIVE (NEGATIVE); GLUCOSE, URINE (UA) NEGATIVE (NEGATIVE); KETONES,URINE NEGATIVE (NEGATIVE); LEUKOCYTE ESTERASE ,URINE NEGATIVE (NEGATIVE); NITRATE,URINE NEGATIVE (NEGATIVE); OCCULT BLOOD,URINE NEGATIVE (NEGATIVE); PROTEIN,URINE NEGATIVE (NEGATIVE); UROBILINOGEN,URINE 0.2 mg/dL (<=1.0)
[2019-12-22 21:49] LABS: AMPHET/METH SCREEN,URINE NEGATIVE (NEGATIVE); BARBITURATE SCREEN, URINE NEGATIVE (NEGATIVE); BENZODIAZEPINES SCREEN,URINE NEGATIVE (NEGATIVE); CANNABINOID SCREEN,URINE NEGATIVE (NEGATIVE); COCAINE SCREEN,URINE NEGATIVE (NEGATIVE); METHADONE SCREEN, URINE NEGATIVE (NEGATIVE); OPIATE SCREEN,URINE NEGATIVE (NEGATIVE)
[2019-12-22 21:50] LABS: PHENCYCLIDINE SCREEN,URINE NEGATIVE (NEGATIVE)
[2019-12-22 22:45] VITALS: BP 147/93
[2019-12-22] MEDS ORDERED: INSULIN LISPRO 100 UNITS/ML SQ PRN (23:15)
[2019-12-22] MEDS ORDERED: DEXTROSE 50%-WATER 25 GM/50 ML SYRINGE IVP PRN (23:15)
[2019-12-22] MEDS: TraZODone HCL 100 MG TABLET PO PRN (23:52)
[2019-12-23 00:47] VITALS: BP 139/88
[2019-12-23] MEDS: HALOPERIDOL 5 MG TABLET PO PRN (00:47)
[2019-12-23 05:29] LABS: GLUCOMETER DEV NAME(LOC) 3E.I 2; GLUCOSE,POINT OF CARE 120 MG/DL (70-110)
[2019-12-23] MEDS: MetFORMIN HCL 500 MG TABLET PO SCH ×2 (07:03→21:43)
[2019-12-23 07:04] LABS: CHOL/HDL RATIO 5.6 (3.9-5.7)
[2019-12-23 08:29] VITALS: BP 131/74
[2019-12-23 11:06] LABS: GLUCOMETER DEV NAME(LOC) 3E.I 2; GLUCOSE,POINT OF CARE 146 MG/DL (70-110)
[2019-12-23] MEDS ORDERED: DEXTROSE 50%-WATER 25 GM/50 ML SYRINGE IVP PRN (12:15)
[2019-12-23] MEDS ORDERED: LOPERAMIDE HCL 2 MG CAPSULE PO PRN (12:15)
[2019-12-23] MEDS ORDERED: MAGNESIUM HYDROXIDE SUSPENSION 30 ML UDCUP PO PRN (12:15)
[2019-12-23] MEDS ORDERED: CloNIDine HCL 0.1 MG TABLET PO PRN (12:15)
[2019-12-23] MEDS ORDERED: BACITRACIN 28.4 GM OINTMENT TP PRN (12:15)
[2019-12-23] MEDS ORDERED: OMEPRAZOLE 20 MG CAPSULE PO PRN (12:15)
[2019-12-23] MEDS ORDERED: ACETAMINOPHEN 325 MG TABLET PO PRN (12:15)
[2019-12-23] MEDS ORDERED: MAG HYDROX/AL HYDROX/SIMETH ES 30 ML SUSPENSION UDCUP PO PRN (12:15)
[2019-12-23] MEDS ORDERED: DOCUSATE SODIUM 100 MG CAPSULE PO PRN (12:15)
[2019-12-23] MEDS ORDERED: PETROLATUM,WHITE 28 GM JELLY TP PRN (12:15)
[2019-12-23] MEDS ORDERED: ONDANSETRON HCL 4 MG TABLET PO PRN (12:15)
[2019-12-23] MEDS: INSULIN LISPRO 100 UNITS/ML SQ PRN (12:21)
[2019-12-23 17:00] VITALS: BP 122/88
[2019-12-23] MEDS ORDERED: LORazepam 2 MG/ML VIAL ONE (17:52)
[2019-12-23] MEDS ORDERED: DiphenhydrAMINE HCL 50 MG/ML VIAL ONE (17:52)
[2019-12-23] MEDS ORDERED: HALOPERIDOL LACTATE 5 MG/ML VIAL ONE (17:52)
[2019-12-23] MEDS ORDERED: DiphenhydrAMINE HCL 50 MG/ML VIAL IM ONE (18:00)
[2019-12-23] MEDS ORDERED: HALOPERIDOL LACTATE 5 MG/ML VIAL IM ONE ×2 (18:00)
[2019-12-23] MEDS ORDERED: LORazepam 2 MG/ML VIAL IM ONE (18:00)
[2019-12-24 05:02] VITALS: BP 137/90
[2019-12-24 06:01] LABS: GLUCOMETER DEV NAME(LOC) 3E.I 2; GLUCOSE,POINT OF CARE 161 MG/DL (70-110)
[2019-12-24] MEDS: MetFORMIN HCL 500 MG TABLET PO SCH ×2 (07:03→16:51)
[2019-12-24] MEDS: INSULIN LISPRO 100 UNITS/ML SQ PRN ×2 (07:04→13:46)
[2019-12-24 09:53] VITALS: BP 139/106
[2019-12-24] MEDS: BENZTROPINE MESYLATE 1 MG TABLET PO SCH ×2 (10:58→16:51)
[2019-12-24] MEDS: LORazepam 2 MG TABLET PO PRN ×2 (12:45→19:25)
[2019-12-24] MEDS: HALOPERIDOL 5 MG TABLET PO PRN ×2 (12:45→19:27)
[2019-12-24 13:31] LABS: GLUCOMETER DEV NAME(LOC) 3E.I 2; GLUCOSE,POINT OF CARE 173 MG/DL (70-110)
[2019-12-24 16:28] VITALS: BP 120/85
[2019-12-24] MEDS ORDERED: FluPHENAZine HCL 10 MG TABLET PO SCH (21:00)
[2019-12-24] MEDS: TraZODone HCL 100 MG TABLET PO PRN (21:11)
[2019-12-25 00:20] VITALS: BP 130/90
[2019-12-25] MEDS: LORazepam 2 MG TABLET PO PRN ×2 (00:25→13:15)
[2019-12-25] MEDS: BENZOCAINE/MENTHOL LOZENGE MM PRN (00:25)
[2019-12-25] MEDS: ALBUTEROL SULFATE HFA 90 MCG/PUFF 8 GM INHALER IH PRN ×2 (00:37→16:47)
[2019-12-25 05:51] LABS: GLUCOMETER DEV NAME(LOC) 3E.I 2; GLUCOSE,POINT OF CARE 147 MG/DL (70-110)
[2019-12-25] MEDS: MetFORMIN HCL 500 MG TABLET PO SCH ×2 (06:35→16:10)
[2019-12-25] MEDS: INSULIN LISPRO 100 UNITS/ML SQ PRN ×2 (06:52→12:02)
[2019-12-25] MEDS: BENZTROPINE MESYLATE 1 MG TABLET PO SCH ×2 (08:37→16:10)
[2019-12-25 09:24] VITALS: BP 141/89
[2019-12-25 11:47] LABS: GLUCOMETER DEV NAME(LOC) 3E.I 2; GLUCOSE,POINT OF CARE 150 MG/DL (70-110)
[2019-12-25] MEDS: HALOPERIDOL 5 MG TABLET PO PRN (13:16)
[2019-12-25 16:00] VITALS: BP 116/68
[2019-12-25] MEDS ORDERED: HALOPERIDOL LACTATE 5 MG/ML VIAL IM ONE (16:15)
[2019-12-25] MEDS ORDERED: LORazepam 2 MG/ML VIAL IM ONE (16:15)
[2019-12-25 16:26] LABS: GLUCOMETER DEV NAME(LOC) 3E.I 2; GLUCOSE,POINT OF CARE 103 MG/DL (70-110)
[2019-12-25] MEDS: FluPHENAZine HCL 10 MG TABLET PO SCH (20:24)
[2019-12-25 21:34] LABS: GLUCOMETER DEV NAME(LOC) 3E.I 2; GLUCOSE,POINT OF CARE 133 MG/DL (70-110)
[2019-12-26] MEDS: BENZOCAINE/MENTHOL LOZENGE MM PRN (01:23)
[2019-12-26 01:56] VITALS: BP 138/97
[2019-12-26 04:30] VITALS: BP 152/94
[2019-12-26] MEDS: LORazepam 2 MG TABLET PO PRN ×2 (04:34→14:30)
[2019-12-26] MEDS: HALOPERIDOL 5 MG TABLET PO PRN ×2 (04:34→14:30)
[2019-12-26 05:38] LABS: GLUCOMETER DEV NAME(LOC) 3E.I 2; GLUCOSE,POINT OF CARE 134 MG/DL (70-110)
[2019-12-26] MEDS: MetFORMIN HCL 500 MG TABLET PO SCH ×2 (06:57→17:23)
[2019-12-26] MEDS: INSULIN LISPRO 100 UNITS/ML SQ PRN (06:57)
[2019-12-26] MEDS: BENZTROPINE MESYLATE 1 MG TABLET PO SCH ×2 (08:03→16:01)
[2019-12-26 09:02] VITALS: BP 133/98
[2019-12-26 11:51] LABS: GLUCOMETER DEV NAME(LOC) 3E.I 2; GLUCOSE,POINT OF CARE 106 MG/DL (70-110)
[2019-12-26 16:41] LABS: GLUCOMETER DEV NAME(LOC) 3E.I 2; GLUCOSE,POINT OF CARE 123 MG/DL (70-110)
[2019-12-26 16:43] VITALS: BP 147/100
[2019-12-26] MEDS: FluPHENAZine HCL 10 MG TABLET PO SCH (20:26)
[2019-12-26 21:16] LABS: GLUCOMETER DEV NAME(LOC) 3E.I 2; GLUCOSE,POINT OF CARE 108 MG/DL (70-110)
[2019-12-26] MEDS: TraZODone HCL 100 MG TABLET PO PRN (21:52)
[2019-12-27 00:42] VITALS: BP 134/94
[2019-12-27] MEDS: BENZOCAINE/MENTHOL LOZENGE MM PRN (02:33)
[2019-12-27] MEDS: LORazepam 2 MG TABLET PO PRN (02:33)
[2019-12-27 06:39] LABS: GLUCOMETER DEV NAME(LOC) 3E.I 2; GLUCOSE,POINT OF CARE 124 MG/DL (70-110)
[2019-12-27] MEDS: MetFORMIN HCL 500 MG TABLET PO SCH ×2 (06:39→16:42)
[2019-12-27 08:53] VITALS: BP 135/88
[2019-12-27] MEDS: BENZTROPINE MESYLATE 1 MG TABLET PO SCH ×2 (09:04→16:42)
[2019-12-27 11:30] LABS: GLUCOMETER DEV NAME(LOC) 3E.I 2; GLUCOSE,POINT OF CARE 110 MG/DL (70-110)
[2019-12-27 16:52] LABS: GLUCOMETER DEV NAME(LOC) 3E.I 2; GLUCOSE,POINT OF CARE 110 MG/DL (70-110)
[2019-12-27 17:41] VITALS: BP 133/87
[2019-12-27] MEDS ORDERED: DiphenhydrAMINE HCL 50 MG/ML VIAL ONE (20:08)
[2019-12-27] MEDS ORDERED: HALOPERIDOL LACTATE 5 MG/ML VIAL ONE (20:08)
[2019-12-27] MEDS ORDERED: LORazepam 2 MG/ML VIAL ONE (20:08)
[2019-12-27] MEDS ORDERED: HALOPERIDOL LACTATE 5 MG/ML VIAL IM ONE (20:15)
[2019-12-27] MEDS ORDERED: DiphenhydrAMINE HCL 50 MG/ML VIAL IM ONE (20:15)
[2019-12-27] MEDS ORDERED: LORazepam 2 MG/ML VIAL IM ONE (20:15)
[2019-12-27] MEDS: FluPHENAZine HCL 10 MG TABLET PO SCH (21:20)
[2019-12-28 01:45] VITALS: BP 133/83
[2019-12-28] MEDS: IBUPROFEN 600 MG TABLET PO PRN ×3 (02:30→18:10)
[2019-12-28 05:42] LABS: GLUCOMETER DEV NAME(LOC) 3E.I 2; GLUCOSE,POINT OF CARE 125 MG/DL (70-110)
[2019-12-28] MEDS: MetFORMIN HCL 500 MG TABLET PO SCH ×2 (06:45→17:29)
[2019-12-28] MEDS: BENZTROPINE MESYLATE 1 MG TABLET PO SCH ×2 (08:24→17:00)
[2019-12-28] MEDS: HALOPERIDOL 5 MG TABLET PO PRN (08:24)
[2019-12-28 09:35] VITALS: BP 127/97
[2019-12-28 11:41] LABS: GLUCOMETER DEV NAME(LOC) 3E.I 2; GLUCOSE,POINT OF CARE 125 MG/DL (70-110)
[2019-12-28] MEDS: INSULIN LISPRO 100 UNITS/ML SQ PRN ×2 (11:51→20:59)
[2019-12-28] MEDS ORDERED: HALOPERIDOL LACTATE 5 MG/ML VIAL ONE (16:11)
[2019-12-28] MEDS ORDERED: LORazepam 2 MG/ML VIAL ONE (16:11)
[2019-12-28] MEDS ORDERED: LORazepam 2 MG/ML VIAL IM ONE (16:15)
[2019-12-28] MEDS ORDERED: HALOPERIDOL LACTATE 5 MG/ML VIAL IM ONE (16:15)
[2019-12-28 18:08] VITALS: BP 120/72
[2019-12-28 20:03] LABS: GLUCOMETER DEV NAME(LOC) 3E.I 2; GLUCOSE,POINT OF CARE 167 MG/DL (70-110)
[2019-12-28] MEDS: FluPHENAZine HCL 10 MG TABLET PO SCH (21:11)
[2019-12-28] MEDS: TraZODone HCL 100 MG TABLET PO PRN (22:55)
[2019-12-29 00:30] VITALS: BP 134/95
[2019-12-29 06:28] LABS: GLUCOMETER DEV NAME(LOC) 3E.I 2; GLUCOSE,POINT OF CARE 110 MG/DL (70-110)
[2019-12-29] MEDS: MetFORMIN HCL 500 MG TABLET PO SCH ×2 (06:58→16:53)
[2019-12-29] MEDS: INSULIN LISPRO 100 UNITS/ML SQ PRN (07:00)
[2019-12-29] MEDS: BENZTROPINE MESYLATE 1 MG TABLET PO SCH ×2 (09:03→16:53)
[2019-12-29 09:44] VITALS: BP 135/83
[2019-12-29 11:06] LABS: GLUCOMETER DEV NAME(LOC) 3E.I 2; GLUCOSE,POINT OF CARE 103 MG/DL (70-110)
[2019-12-29] MEDS: FluPHENAZine HCL 5 MG TABLET PO PRN ×2 (16:52→23:32)
[2019-12-29 17:00] VITALS: BP 129/95
[2019-12-29 17:35] LABS: GLUCOMETER DEV NAME(LOC) 3E.I 2; GLUCOSE,POINT OF CARE 137 MG/DL (70-110)
[2019-12-29] MEDS ORDERED: HALOPERIDOL LACTATE 5 MG/ML VIAL ONE (20:28)
[2019-12-29] MEDS ORDERED: HALOPERIDOL LACTATE 5 MG/ML VIAL IM ONE (20:30)
[2019-12-29] MEDS ORDERED: LORazepam 2 MG/ML VIAL IM ONE (20:30)
[2019-12-29] MEDS: FluPHENAZine HCL 10 MG TABLET PO SCH (21:32)
[2019-12-29 21:51] LABS: GLUCOMETER DEV NAME(LOC) 3E.I 2; GLUCOSE,POINT OF CARE 119 MG/DL (70-110)
[2019-12-30 03:23] VITALS: BP 132/97
[2019-12-30 05:24] LABS: GLUCOMETER DEV NAME(LOC) 3E.I 2; GLUCOSE,POINT OF CARE 125 MG/DL (70-110)
[2019-12-30] MEDS: MetFORMIN HCL 500 MG TABLET PO SCH ×2 (06:41→16:30)
[2019-12-30 08:59] VITALS: BP 149/97
[2019-12-30] MEDS: BENZTROPINE MESYLATE 1 MG TABLET PO SCH ×2 (09:48→16:14)
[2019-12-30] MEDS: FluPHENAZine HCL 5 MG TABLET PO PRN ×2 (10:14→16:36)
[2019-12-30] MEDS: LORazepam 2 MG TABLET PO PRN ×2 (10:14→16:35)
[2019-12-30] MEDS: INSULIN LISPRO 100 UNITS/ML SQ PRN (11:21)
[2019-12-30 11:22] LABS: GLUCOMETER DEV NAME(LOC) 3E.I 2; GLUCOSE,POINT OF CARE 103 MG/DL (70-110)
[2019-12-30 18:09] VITALS: BP 150/96
[2019-12-30] MEDS: ALBUTEROL SULFATE HFA 90 MCG/PUFF 8 GM INHALER IH PRN (21:17)
[2019-12-30] MEDS: FluPHENAZine HCL 10 MG TABLET PO SCH (21:17)
[2019-12-30] MEDS: TraZODone HCL 100 MG TABLET PO PRN (22:27)
[2019-12-31 00:55] VITALS: BP 150/90
[2019-12-31] MEDS: BENZOCAINE/MENTHOL LOZENGE MM PRN (03:31)
[2019-12-31 05:50] LABS: GLUCOMETER DEV NAME(LOC) 3E.I 2; GLUCOSE,POINT OF CARE 169 MG/DL (70-110)
[2019-12-31] MEDS: MetFORMIN HCL 500 MG TABLET PO SCH (07:00)
[2019-12-31] MEDS: INSULIN LISPRO 100 UNITS/ML SQ PRN (07:03)
[2019-12-31] MEDS: BENZTROPINE MESYLATE 1 MG TABLET PO SCH (08:35)
[2019-12-31 09:51] VITALS: BP 147/90
[2019-12-31] MEDS ORDERED: BENZ1TAB10 PO (10:30)
[2019-12-31] MEDS ORDERED: FLUP1 PO (10:31)
[2019-12-31] MEDS ORDERED: METF-960 PO (10:32)
[2019-12-31 11:26] LABS: GLUCOMETER DEV NAME(LOC) 3E.I 2; GLUCOSE,POINT OF CARE 126 MG/DL (70-110)
== END 2019-12-31 14:30 | disposition home or self-care (01) | DRG 885 ==
LOC: EMS 17:34 → 3EI 21:30
PROVIDERS: ADMIT Psychiatry & Neurology Psychiatry; ATTEND Psychiatry & Neurology Psychiatry
DX: F20.0 Paranoid schizophrenia (principal); E11.65 Type 2 diabetes mellitus with hyperglycemia; R45.851 Suicidal ideations; R06.03 Acute respiratory distress; F41.8 Other specified anxiety disorders; E66.9 Obesity, unspecified; I10 Essential (primary) hypertension; K59.00 Constipation, unspecified; J45.909 Unspecified asthma, uncomplicated; E78.5 Hyperlipidemia, unspecified; Z88.8 Allergy status to other drugs, medicaments and biological substances; Z68.37 Body mass index [BMI] 37.0-37.9, adult; Z91.013 Allergy to seafood; Z83.3 Family history of diabetes mellitus; Z82.49 Family history of ischemic heart disease and other diseases of the circulatory system; Z82.5 Family history of asthma and other chronic lower respiratory diseases
CPT/HCPCS: G0480; J1200; J1630; J2060; J3535

== ENCOUNTER 2020-05-04 07:29 | Emergency (ER) | payer OTHER ==
[~2020-05-04] VITALS: Ht 167.6 cm; Wt 107.3 kg
[~2020-05-04 07:29] MED LIST changes: -AZIT500T4 PO; -BENZ-17 PO; +BENZ1TAB10 PO; -CEPH-582 PO; +DOXY-354 PO; +FLUP10 PO; -GUAIFDM PO; -OSEL75 PO; +SULF1TAB42 PO
[2020-05-04 07:32] VITALS: BP 138/97
[2020-05-05 07:15] LABS: GLUCOSE,POINT OF CARE 161 MG/DL (70-110)
== END 2020-05-04 08:32 | disposition home or self-care (01) ==
LOC: EMS 07:33
DX: L30.9 Dermatitis, unspecified (principal); F41.9 Anxiety disorder, unspecified; F20.9 Schizophrenia, unspecified; J45.909 Unspecified asthma, uncomplicated; E11.9 Type 2 diabetes mellitus without complications; I10 Essential (primary) hypertension; Z88.8 Allergy status to other drugs, medicaments and biological substances; Z91.013 Allergy to seafood; Z79.84 Long term (current) use of oral hypoglycemic drugs

== ENCOUNTER 2020-11-14 17:51 | Inpatient (IN) | payer OTHER ==
[2020-11-14] VITALS (8 sets, daily range): BP systolic 106–116; BP diastolic 51–67
[~2020-11-14] VITALS: Ht 170.2 cm; Wt 106.4 kg
[~2020-11-14 17:51] MED LIST changes: +ACET-66 PO; +DOCU100C33 PO; -DOXY-354 PO; +FERR-82 PO; -FLUP10 PO; +FLUP10TA13 PO; +GEMF600T90 PO; +PANT-31 PO; -SULF1TAB42 PO; +TOPI100T37 PO
[2020-11-14 18:11] LABS: GLUCOSE,POINT OF CARE 190 MG/DL (70-110)
[2020-11-14 19:54] LABS: COVID AG,FIA SOURCE NASOPHARYNGEAL
[2020-11-14] MEDS ORDERED: SODIUM CHLORIDE 0.9% 1,000 ML IV ONE (20:00)
[2020-11-14 20:03] LABS: MEAN CORPUSCULAR HGB CONC 35.2 G/dL (31.0-37.0); MEAN CORPUSCULAR VOLUME 82 fL (80-100); PLATELET COUNT (AUTO) 153 K/uL (150-450); RED BLOOD CELL COUNT(AUTO) 1.72 MIL/uL (4.00-5.20); RED CELL DISTRIBUTION WIDTH 14.8 % (11.5-14.5)
[2020-11-14 20:13] LABS: ANION GAP 12 mmol/L (8-16); CALCIUM, TOTAL 9.1 mg/dL (8.8-10.5); CARBON DIOXIDE 25 mmol/L (22-29); CHLORIDE 105 mmol/L (98-107); CREATININE 0.95 mg/dL (0.60-1.30); GLOMERULAR FILTR. RATE CALC > 60 mL/min (>60); GLUCOSE,RANDOM 137 mg/dL (70-110); POTASSIUM 4.2 mmol/L (3.5-5.1); SODIUM SERUM 142 mmol/L (136-145); UREA NITROGEN, BLOOD 17 mg/dL (7-18)
[2020-11-14 20:15] LABS: HEMATOCRIT 14.1 % (36-46)
[2020-11-14 20:28] LABS: ALANINE AMINOTRANSFERASE 16 U/L (12-78); ALBUMIN 3.9 g/dL (3.4-5.0); ALKALINE PHOSPHATASE 59 U/L (46-116); ASPARTATE AMINOTRANSFERASE 13 U/L (15-37); B-TYPE NATRIURETIC PEPTIDE 20 pg/mL (0-100); BILIRUBIN,TOTAL 0.9 mg/dL (0.1-1.0); FREE T4 (FREE THYROXINE) 0.86 ng/dL (0.76-1.46); HCG,QUANTITATIVE < 1 mIU/mL (0-6); LIPASE 149 U/L (73-393); THYROID STIMULATING HORMONE 1.64 uIU/mL (0.36-3.74); TOTAL PROTEIN, SERUM 7.2 g/dL (6.4-8.2)
[2020-11-14] MEDS ORDERED: PANTOPRAZOLE SODIUM 80 MG in SODIUM CHLORIDE 0.9% 100 ML IV SCH (20:30)
[2020-11-14] MEDS ORDERED: PANTOPRAZOLE SODIUM 40 MG/VIAL IVP ONE (20:30)
[2020-11-14 20:31] LABS: PROTHROMBIN TIME 11.1 SEC (9.4-11.6)
[2020-11-14 20:43] LABS: BAND NEUTROPHILS % (MANUAL) 13 % (0-5); BASOPHILS % (MANUAL) 1 % (0-2); LYMPHOCYTES % (MANUAL) 8 % (22-44); MONOCYTES % (MANUAL) 6 % (2-9); PLATELET MORPHOLOGY COMMENT GIANT PLTS PRESENT; SEGMENTED NEUTROPHILS % 72 % (40-70)
[2020-11-14] MEDS ORDERED: ONDANSETRON HCL 4 MG/2 ML VIAL IVP PRN ×2 (21:00→21:45)
[2020-11-14] MEDS ORDERED: ACETAMINOPHEN 325 MG TABLET PO PRN (21:00)
[2020-11-14] MEDS ORDERED: 0.9% SODIUM CHLORIDE 10 ML SYRINGE IVP PRN (21:00)
[2020-11-14] MEDS ORDERED: BISACODYL 10 MG RECTAL RECTAL SUPPOSITORY PR PRN (21:45)
[2020-11-14] MEDS ORDERED: HYDROCODONE/ACETAMINOPHEN 5-325 MG TABLET PO PRN (21:45)
[2020-11-14] MEDS ORDERED: MAGNESIUM HYDROXIDE SUSPENSION 30 ML UDCUP PO PRN (21:45)
[2020-11-14] MEDS ORDERED: MORPHINE SULFATE 2 MG/ML SYRINGE IVP PRN (21:45)
[2020-11-14] MEDS ORDERED: SODIUM CHLORIDE 0.9% 500 ML IV ONE (23:34)
[2020-11-15] VITALS (11 sets, daily range): BP systolic 100–132; BP diastolic 51–91
[2020-11-15] MEDS: GEMFIBROZIL 600 MG TABLET PO SCH ×2 (06:22→17:19)
[2020-11-15 07:52] LABS: MEAN CORPUSCULAR HEMOGLOBIN 29.3 pg (26.0-34.0); MEAN CORPUSCULAR HGB CONC 34.5 G/dL (31.0-37.0); MEAN CORPUSCULAR VOLUME 85 fL (80-100); PLATELET COUNT (AUTO) 149 K/uL (150-450); RED BLOOD CELL COUNT(AUTO) 2.39 MIL/uL (4.00-5.20); RED CELL DISTRIBUTION WIDTH 14.9 % (11.5-14.5)
[2020-11-15] MEDS: PANTOPRAZOLE SODIUM 40 MG DR TABLET PO SCH ×2 (07:55→20:52)
[2020-11-15] MEDS: FERROUS SULFATE 325 MG EC TABLET PO SCH ×3 (07:55→17:20)
[2020-11-15] MEDS: BENZTROPINE MESYLATE 1 MG TABLET PO SCH ×2 (07:55→20:52)
[2020-11-15] MEDS: DOCUSATE SODIUM 100 MG CAPSULE PO SCH ×2 (07:55→20:51)
[2020-11-15] MEDS: MetFORMIN HCL 500 MG TABLET PO SCH ×2 (07:55→17:19)
[2020-11-15 07:58] LABS: HEMATOCRIT 20.3 % (36-46)
[2020-11-15 08:01] LABS: BAND NEUTROPHILS % (MANUAL) 11 % (0-5); LYMPHOCYTES % (MANUAL) 17 % (22-44); MONOCYTES % (MANUAL) 10 % (2-9); PLATELET MORPHOLOGY COMMENT LARGE PLTS PRESENT; SEGMENTED NEUTROPHILS % 62 % (40-70)
[2020-11-15 08:14] LABS: INR 1.1 (0.9-1.1); PROTHROMBIN TIME 11.4 SEC (9.4-11.6)
[2020-11-15] MEDS ORDERED: PANTOPRAZOLE SODIUM 40 MG DR TABLET PO SCH (09:00)
[2020-11-15] MEDS ORDERED: SERT-162 PO (10:03)
[2020-11-15] MEDS: MULTIVITAMINS WITH MINERALS, THERAPEUTIC TABLET PO SCH (12:19)
[2020-11-15] MEDS: SERTRALINE HCL 100 MG TABLET PO SCH (12:19)
[2020-11-15] MEDS: BENZONATATE 100 MG CAPSULE PO PRN ×2 (12:19→21:04)
[2020-11-15] MEDS: FluPHENAZine HCL 10 MG TABLET PO SCH (20:51)
[2020-11-15] MEDS: TOPIRAMATE 100 MG TABLET PO SCH (20:52)
[2020-11-16] VITALS (16 sets, daily range): BP systolic 92–146; BP diastolic 61–84
[2020-11-16] MEDS: ACETAMINOPHEN 325 MG TABLET PO PRN ×2 (00:35→06:08)
[2020-11-16] MEDS: GEMFIBROZIL 600 MG TABLET PO SCH ×2 (05:42→17:10)
[2020-11-16] MEDS: BENZONATATE 100 MG CAPSULE PO PRN ×3 (05:42→20:16)
[2020-11-16 06:45] LABS: MEAN CORPUSCULAR HEMOGLOBIN 29.7 pg (26.0-34.0); MEAN CORPUSCULAR HGB CONC 35.3 G/dL (31.0-37.0); MEAN CORPUSCULAR VOLUME 84 fL (80-100); PLATELET COUNT (AUTO) 148 K/uL (150-450); RED BLOOD CELL COUNT(AUTO) 2.35 MIL/uL (4.00-5.20); RED CELL DISTRIBUTION WIDTH 14.7 % (11.5-14.5)
[2020-11-16 06:49] LABS: HEMATOCRIT 19.8 % (36-46)
[2020-11-16] MEDS: FERROUS SULFATE 325 MG EC TABLET PO SCH ×4 (08:00→17:55)
[2020-11-16] MEDS: MetFORMIN HCL 500 MG TABLET PO SCH ×2 (08:26→17:54)
[2020-11-16] MEDS: PANTOPRAZOLE SODIUM 40 MG DR TABLET PO SCH ×2 (08:26→20:16)
[2020-11-16] MEDS: MULTIVITAMINS WITH MINERALS, THERAPEUTIC TABLET PO SCH (08:26)
[2020-11-16] MEDS: BENZTROPINE MESYLATE 1 MG TABLET PO SCH ×2 (08:26→20:17)
[2020-11-16] MEDS: DOCUSATE SODIUM 100 MG CAPSULE PO SCH ×2 (08:26→20:16)
[2020-11-16] MEDS: SERTRALINE HCL 100 MG TABLET PO SCH (08:27)
[2020-11-16] MEDS ORDERED: SODIUM CHLORIDE 0.9% 500 ML IV ONE (08:52)
[2020-11-16 09:05] LABS: BAND NEUTROPHILS % (MANUAL) 10 % (0-5); EOSINOPHILS % (MANUAL) 1 % (1-6); LYMPHOCYTES % (MANUAL) 43 % (22-44); MONOCYTES % (MANUAL) 5 % (2-9); SEGMENTED NEUTROPHILS % 41 % (40-70)
[2020-11-16] MEDS ORDERED: DEXTROSE 50%-WATER 25 GM/50 ML SYRINGE IVP PRN (12:45)
[2020-11-16] MEDS ORDERED: INSULIN LISPRO 100 UNITS/ML SQ PRN (12:45)
[2020-11-16 18:41] LABS: GLUCOMETER DEV NAME(LOC) 5N.1B; GLUCOSE,POINT OF CARE 110 MG/DL (70-110)
[2020-11-16 18:41] LABS: GLUCOMETER DEV NAME(LOC) 5N.1B; GLUCOSE,POINT OF CARE 128 MG/DL (70-110)
[2020-11-16] MEDS: TOPIRAMATE 100 MG TABLET PO SCH (20:16)
[2020-11-16] MEDS: FluPHENAZine HCL 10 MG TABLET PO SCH (20:17)
[2020-11-16] MEDS: GuaiFENesin/D-METHORPHAN [SUGAR-FREE] 200-20MG/10 ML SYRUP UDCUP PO PRN (22:12)
[2020-11-17 04:35] VITALS: BP 134/80
[2020-11-17] MEDS: GuaiFENesin/D-METHORPHAN [SUGAR-FREE] 200-20MG/10 ML SYRUP UDCUP PO PRN ×2 (04:55→10:03)
[2020-11-17] MEDS: BENZONATATE 100 MG CAPSULE PO PRN ×2 (04:55→10:04)
[2020-11-17] MEDS: GEMFIBROZIL 600 MG TABLET PO SCH (06:08)
[2020-11-17 06:57] LABS: BASOPHILS % (AUTO) 0.4 % (0.0-2.0); EOSINOPHILS % (AUTO) 0 % (1.0-6.0); HEMATOCRIT 23.8 % (36-46); HEMOGLOBIN 8.5 g/dL (12.0-16.0); LYMPHOCYTES # (AUTO) 1.4 K/uL (1.0-4.8); LYMPHOCYTES % (AUTO) 29.4 % (22.0-44.0); MEAN CORPUSCULAR HEMOGLOBIN 29.5 pg (26.0-34.0); MEAN CORPUSCULAR HGB CONC 35.6 G/dL (31.0-37.0); MEAN CORPUSCULAR VOLUME 83 fL (80-100); MONOCYTES # (AUTO) 0.5 K/uL (0.1-1.0); MONOCYTES % (AUTO) 10.8 % (2.0-9.0); NEUTROPHILS # (AUTO) 2.8 K/uL (1.8-7.7); NEUTROPHILS % (AUTO) 59.4 % (40.0-70.0); PLATELET COUNT (AUTO) 130 K/uL (150-450); RED BLOOD CELL COUNT(AUTO) 2.87 MIL/uL (4.00-5.20); RED CELL DISTRIBUTION WIDTH 14.7 % (11.5-14.5)
[2020-11-17 06:59] LABS: GLUCOMETER DEV NAME(LOC) 6N.1; GLUCOSE,POINT OF CARE 130 MG/DL (70-110)
[2020-11-17 07:25] LABS: GLUCOMETER DEV NAME(LOC) 5S.1; GLUCOSE,POINT OF CARE 93 MG/DL (70-110)
[2020-11-17] MEDS: FERROUS SULFATE 325 MG EC TABLET PO SCH ×2 (08:00→08:09)
[2020-11-17 08:05] VITALS: BP 133/86
[2020-11-17] MEDS: MULTIVITAMINS WITH MINERALS, THERAPEUTIC TABLET PO SCH (08:08)
[2020-11-17] MEDS: SERTRALINE HCL 100 MG TABLET PO SCH (08:08)
[2020-11-17] MEDS: BENZTROPINE MESYLATE 1 MG TABLET PO SCH (08:08)
[2020-11-17] MEDS: MetFORMIN HCL 500 MG TABLET PO SCH (08:08)
[2020-11-17] MEDS: DOCUSATE SODIUM 100 MG CAPSULE PO SCH (08:09)
[2020-11-17] MEDS: PANTOPRAZOLE SODIUM 40 MG DR TABLET PO SCH (08:09)
[2020-11-17 08:30] LABS: ANION GAP 10 mmol/L (8-16); CALCIUM, TOTAL 9.5 mg/dL (8.8-10.5); CARBON DIOXIDE 26 mmol/L (22-29); CHLORIDE 105 mmol/L (98-107); CREATININE 0.77 mg/dL (0.60-1.30); GLOMERULAR FILTR. RATE CALC > 60 mL/min (>60); GLUCOSE,RANDOM 124 mg/dL (70-110); SODIUM SERUM 141 mmol/L (136-145); UREA NITROGEN, BLOOD 14 mg/dL (7-18)
[2020-11-17 21:22] LABS: GLUCOMETER DEV NAME(LOC) 6N.1; GLUCOSE,POINT OF CARE 114 MG/DL (70-110)
== END 2020-11-17 14:50 | disposition home or self-care (01) | DRG 241 ==
LOC: EMS 17:55 → 5S 21:00 → 5N 21:28 → 6N 11-16 23:05
PROVIDERS: ADMIT Internal Medicine; ATTEND Internal Medicine
PROC: 30233N1 Transfusion of Nonautologous Red Blood Cells into Peripheral Vein, Percutaneous Approach (ICD-10-PCS; principal; 2020-11-14)
DX: K27.4 Chronic or unspecified peptic ulcer, site unspecified, with hemorrhage (principal); E44.0 Moderate protein-calorie malnutrition; D62 Acute posthemorrhagic anemia; I10 Essential (primary) hypertension; J45.909 Unspecified asthma, uncomplicated; F20.9 Schizophrenia, unspecified; I34.1 Nonrheumatic mitral (valve) prolapse; Z20.822 Contact with and (suspected) exposure to COVID-19; E66.01 Morbid (severe) obesity due to excess calories; F32.9 Major depressive disorder, single episode, unspecified; Z88.8 Allergy status to other drugs, medicaments and biological substances; Z68.36 Body mass index [BMI] 36.0-36.9, adult; F41.9 Anxiety disorder, unspecified; E11.9 Type 2 diabetes mellitus without complications; K31.7 Polyp of stomach and duodenum
CPT/HCPCS: 36430; 82271; 84439; 84443; 86850; 86900; 86901; 86923; 87081; 87426; 93005; 99291; C9113; J7040; J7050; P9016; 36415-L1; 36415-TC; 71045-TC; U0003

== ENCOUNTER 2020-12-20 17:11 | Emergency (ER) | payer OTHER ==
[~2020-12-20] VITALS: Ht 170.2 cm; Wt 81.8 kg
[~2020-12-20 17:11] MED LIST changes: -DOCU100C33 PO; -FERR-82 PO; +SERT-162 PO
[2020-12-20 17:39] VITALS: BP 118/74
[2020-12-20 18:17] LABS: APPEARANCE,URINE CLEAR (CLEAR); BILIRUBIN,URINE NEGATIVE (NEGATIVE); GLUCOSE, URINE (UA) NEGATIVE (NEGATIVE); KETONES,URINE NEGATIVE (NEGATIVE); LEUKOCYTE ESTERASE ,URINE NEGATIVE (NEGATIVE); NITRATE,URINE NEGATIVE (NEGATIVE); OCCULT BLOOD,URINE NEGATIVE (NEGATIVE); PROTEIN,URINE NEGATIVE (NEGATIVE); UROBILINOGEN,URINE 0.2 mg/dL (<=1.0)
== END 2020-12-20 20:37 | disposition left against medical advice (07) ==
LOC: EMS 17:11
DX: R10.30 Lower abdominal pain, unspecified (principal); R11.10 Vomiting, unspecified; F32.9 Major depressive disorder, single episode, unspecified; J45.909 Unspecified asthma, uncomplicated; F20.9 Schizophrenia, unspecified
CPT/HCPCS: 99283

== ENCOUNTER 2021-11-17 21:20 | Emergency (ER) | payer OTHER ==
[~2021-11-17] VITALS: Ht 170.2 cm; Wt 90.9 kg
[~2021-11-17 21:20] MED LIST changes: +METF-1211 PO; -METF-960 PO
[2021-11-17 22:27] LABS: COVID AG,FIA SOURCE NASAL SWAB
[2021-11-17 22:35] LABS: BASOPHILS % (AUTO) 0.3 % (0.0-2.0); EOSINOPHILS % (AUTO) 0.2 % (1.0-6.0); HEMATOCRIT 40.2 % (36-46); HEMOGLOBIN 13.5 g/dL (12.0-16.0); LYMPHOCYTES # (AUTO) 2.4 K/uL (1.0-4.8); LYMPHOCYTES % (AUTO) 17.7 % (22.0-44.0); MEAN CORPUSCULAR HEMOGLOBIN 28.5 pg (26.0-34.0); MEAN CORPUSCULAR HGB CONC 33.6 G/dL (31.0-37.0); MEAN CORPUSCULAR VOLUME 85 fL (80-100); MONOCYTES % (AUTO) 7.8 % (2.0-9.0); NEUTROPHILS # (AUTO) 9.8 K/uL (1.8-7.7); PLATELET COUNT (AUTO) 241 K/uL (150-450); RED BLOOD CELL COUNT(AUTO) 4.74 MIL/uL (4.00-5.20); RED CELL DISTRIBUTION WIDTH 13.4 % (11.5-14.5)
[2021-11-17 22:44] LABS: ANION GAP 11 mmol/L (8-16); CALCIUM, TOTAL 9.1 mg/dL (8.8-10.5); CARBON DIOXIDE 25 mmol/L (22-29); CHLORIDE 97 mmol/L (98-107); CREATININE 0.83 mg/dL (0.60-1.30); GLOMERULAR FILTR. RATE CALC > 60 mL/min (>60); GLUCOSE,RANDOM 124 mg/dL (70-110); POTASSIUM 3.6 mmol/L (3.5-5.1); SODIUM SERUM 133 mmol/L (136-145); UREA NITROGEN, BLOOD 13 mg/dL (7-18)
[2021-11-17] MEDS ORDERED: ALBUTEROL SULFATE HFA 90 MCG/PUFF 8 GM INHALER IH ONE (22:45)
[2021-11-17 22:55] LABS: ALANINE AMINOTRANSFERASE 25 U/L (12-78); ALBUMIN 4.1 g/dL (3.4-5.0); ALKALINE PHOSPHATASE 60 U/L (46-116); ASPARTATE AMINOTRANSFERASE 13 U/L (15-37); BILIRUBIN,TOTAL 0.5 mg/dL (0.1-1.0); HCG,QUANTITATIVE < 1 mIU/mL (0-6)
[2021-11-17] MEDS ORDERED: SODIUM CHLORIDE 0.9% 100 ML ONE (23:25)
[2021-11-17] MEDS ORDERED: IOHEXOL 350 MG/ML 100 ML VIAL ONE (23:26)
[2021-11-18 04:54] VITALS: BP 135/78
== END 2021-11-18 04:55 | disposition home or self-care (01) ==
LOC: EMS 21:20
DX: R04.2 Hemoptysis (principal); N63.0 Unspecified lump in unspecified breast; R05.9 Cough, unspecified; F20.9 Schizophrenia, unspecified; F41.9 Anxiety disorder, unspecified; I10 Essential (primary) hypertension; E11.9 Type 2 diabetes mellitus without complications; F32.9 Major depressive disorder, single episode, unspecified; Z88.8 Allergy status to other drugs, medicaments and biological substances; Z79.899 Other long term (current) drug therapy; Z79.84 Long term (current) use of oral hypoglycemic drugs; Z20.822 Contact with and (suspected) exposure to COVID-19
CPT/HCPCS: 36415; 71045; 71275; 80053; 84702; 85025; 85379; 87040; 87426; 93005; 94640; 99285; J7050; Q9967; J3535

== ENCOUNTER 2022-01-14 17:32 | Emergency (ER) | payer OTHER ==
[~2022-01-14 17:32] MED LIST changes: -BENZ1TAB10 PO; +BENZ1TAB96 PO; -FLUP10TA13 PO; +FLUP10TA28 PO
== END 2022-01-14 18:25 | disposition left against medical advice (07) ==
LOC: EMS 17:35
DX: Z53.21 Procedure and treatment not carried out due to patient leaving prior to being seen by health care provider (principal)

== ENCOUNTER 2022-04-09 17:36 | Inpatient (IN) | payer OTHER ==
[~2022-04-09] VITALS: Ht 167.6 cm; Wt 114.1 kg
[~2022-04-09 17:36] MED LIST changes: +GEMF-77 PO; -GEMF600T90 PO
[2022-04-09] MEDS ORDERED: 0.9% SODIUM CHLORIDE 10 ML SYRINGE IVP PRN (18:45)
[2022-04-09] MEDS ORDERED: SODIUM CHLORIDE 0.9% 3,400 ML IV ONE (18:45)
[2022-04-09] MEDS ORDERED: ACETAMINOPHEN 1000 MG/ISO-OSM 100 ML IV ONE (19:00)
[2022-04-09 19:09] LABS: COVID AG,FIA SOURCE NASAL SWAB
[2022-04-09 19:12] LABS: BASOPHILS % (AUTO) 0.2 % (0.0-2.0); EOSINOPHILS % (AUTO) 0 % (1.0-6.0); HEMATOCRIT 30.7 % (36-46); HEMOGLOBIN 10.1 g/dL (12.0-16.0); LYMPHOCYTES % (AUTO) 8.3 % (22.0-44.0); MEAN CORPUSCULAR HEMOGLOBIN 27.6 pg (26.0-34.0); MEAN CORPUSCULAR HGB CONC 32.8 G/dL (31.0-37.0); MEAN CORPUSCULAR VOLUME 84 fL (80-100); MONOCYTES # (AUTO) 1.5 K/uL (0.1-1.0); MONOCYTES % (AUTO) 12.7 % (2.0-9.0); NEUTROPHILS # (AUTO) 9.3 K/uL (1.8-7.7); NEUTROPHILS % (AUTO) 78.8 % (40.0-70.0); PLATELET COUNT (AUTO) 155 K/uL (150-450); RED BLOOD CELL COUNT(AUTO) 3.66 MIL/uL (4.00-5.20); RED CELL DISTRIBUTION WIDTH 21.1 % (11.5-14.5)
[2022-04-09 19:22] LABS: ANION GAP 13 mmol/L (8-16); CALCIUM, TOTAL 9.1 mg/dL (8.8-10.5); CARBON DIOXIDE 25 mmol/L (22-29); CHLORIDE 93 mmol/L (98-107); CREATININE 0.97 mg/dL (0.60-1.30); GLOMERULAR FILTR. RATE CALC > 60 mL/min (>60); GLUCOSE,RANDOM 203 mg/dL (70-110); POTASSIUM 3.6 mmol/L (3.5-5.1); SODIUM SERUM 131 mmol/L (136-145); UREA NITROGEN, BLOOD 13 mg/dL (7-18)
[2022-04-09 19:30] LABS: LACTIC ACID 0.9 mmol/L (0.4-2.0)
[2022-04-09 19:31] LABS: INFLUENZA TYPE A NEGATIVE FOR TYPE A (NEGATIVE); INFLUENZA TYPE B NEGATIVE FOR TYPE B (NEGATIVE)
[2022-04-09 19:32] LABS: B-TYPE NATRIURETIC PEPTIDE 8 pg/mL (0-100)
[2022-04-09 19:35] LABS: ALANINE AMINOTRANSFERASE 16 U/L (12-78); ALBUMIN 3.8 g/dL (3.4-5.0); ALKALINE PHOSPHATASE 50 U/L (46-116); ASPARTATE AMINOTRANSFERASE 10 U/L (15-37); BILIRUBIN,TOTAL 2.3 mg/dL (0.1-1.0); CREATINE KINASE, TOTAL ONLY 54 U/L (26-192); HCG,QUANTITATIVE < 1 mIU/mL (0-6)
[2022-04-09] MEDS ORDERED: RINGERS SOLUTION,LACTATED 1,000 ML IV SCH (20:00)
[2022-04-09] MEDS ORDERED: ONDANSETRON HCL 4 MG/2 ML VIAL IVP PRN (20:00)
[2022-04-09] MEDS ORDERED: ACETAMINOPHEN 325 MG TABLET PO PRN (20:00)
[2022-04-09] MEDS ORDERED: SODIUM CHLORIDE 0.9% 100 ML ONE (20:08)
[2022-04-09] MEDS ORDERED: IOHEXOL 350 MG/ML 100 ML VIAL ONE (20:08)
[2022-04-09] MEDS ORDERED: AMLO5TAB66 PO (20:15)
[2022-04-09] MEDS ORDERED: INSULIN LISPRO 100 UNITS/ML SQ PRN (20:15)
[2022-04-09] MEDS ORDERED: ACETAMINOPHEN 500 MG TABLET PO PRN (20:15)
[2022-04-09] MEDS ORDERED: DEXTROSE 50%-WATER 25 GM/50 ML SYRINGE IVP PRN (20:15)
[2022-04-09] MEDS ORDERED: ICOS1CAP2 PO (20:15)
[2022-04-09] MEDS ORDERED: FLUP25VI5 IM (20:15)
[2022-04-09] MEDS ORDERED: PRED-729 PO (20:15)
[2022-04-09] MEDS ORDERED: ATOR-2 PO (20:15)
[2022-04-09] MEDS ORDERED: REMDESIVIR 200 MG in SODIUM CHLORIDE 0.9% 250 ML IV ONE (20:30)
[2022-04-09] MEDS ORDERED: DEXAMETHASONE SOD PHOS 4 MG/ML VIAL IVP SCH (20:30)
[2022-04-09] MEDS ORDERED: INSULIN GLARGINE,HUM.REC.ANLOG 100 UNITS/ML SQ SCH (21:00)
[2022-04-09] MEDS: FluPHENAZine HCL 10 MG TABLET PO SCH (21:00)
[2022-04-09] MEDS: TOPIRAMATE 100 MG TABLET PO SCH (21:00)
[2022-04-09] MEDS ORDERED: PANTOPRAZOLE SODIUM 40 MG DR TABLET PO SCH (21:00)
[2022-04-09] MEDS: BENZTROPINE MESYLATE 1 MG TABLET PO SCH (21:00)
[2022-04-09 21:01] LABS: GLUCOSE,POINT OF CARE 194 MG/DL (70-110)
[2022-04-09 21:13] LABS: C-REACTIVE PROTEIN QUANT 8.46 mg/dL (0.00-0.30); LACTATE DEHYDROGENASE 324 U/L (81-234)
[2022-04-09 21:15] LABS: FERRITIN 1653 ng/mL (8-252)
[2022-04-09 21:39] LABS: APPEARANCE,URINE HAZY (CLEAR); BILIRUBIN,URINE NEGATIVE (NEGATIVE); CREATININE,URINE RANDOM 33.4 mg/dL (30.0-125.0); GLUCOSE, URINE (UA) TRACE mg/dL (NEGATIVE); KETONES,URINE NEGATIVE (NEGATIVE); LEUKOCYTE ESTERASE ,URINE LARGE (NEGATIVE); NITRATE,URINE POSITIVE (NEGATIVE); OCCULT BLOOD,URINE MODERATE (NEGATIVE); PROTEIN,URINE 30-70 mg/dL (NEGATIVE); SPECIFIC GRAVITIY, URINE 1.008 (1.003-1.030); UROBILINOGEN,URINE <=1.0 mg/dL (<=1.0)
[2022-04-09 21:48] LABS: BACTERIA,URINE Moderate /HPF (None Seen); SQUAMOUS EPITHELIAL CELL,UR Few /LPF (None Seen); WBC,URINE 26-50 /HPF (0-5)
[2022-04-09] MEDS ORDERED: CefTRIAXone 1 GM/DEXTROSE 50 ML IV SCH (23:15)
[2022-04-09] MEDS ORDERED: LORazepam 2 MG/ML VIAL IVP ONE (23:45)
[2022-04-10] MEDS ORDERED: HEPARIN SODIUM,PORCINE 5,000 UNITS/ML VIAL SQ SCH
[2022-04-10] MEDS: TOPIRAMATE 100 MG TABLET PO SCH (00:21)
[2022-04-10] MEDS: FluPHENAZine HCL 10 MG TABLET PO SCH (00:21)
[2022-04-10] MEDS: BENZTROPINE MESYLATE 1 MG TABLET PO SCH (00:21)
[2022-04-10 00:54] LABS: ABG BASE EXCESS -8.9 mmol/L (-2.0-3.0); ABG CARBOXYHEMOGLOBIN 0.1 % (0.0-1.5); ABG HCO3 17.6 mmol/L (22.0-26.0); ABG METHEMOGLOBIN 0.6 % (0.0-1.5); ABG OXYGEN CONTENT 15.5 mL/dL (15.0-23.0); ABG OXYGEN SATURATION 98.9 % (95.0-98.0); ABG OXYHEMOGLOBIN 98.2 % (94.0-100.0); ABG PCO2 44 mmHg (35-45); ABG TOTAL HEMOGLOBIN 10.9 G/dL (12.0-18.0); PO2, ARTERIAL BG 193.1 mmHg (92.0-100.0); SOURCE, BLOOD GAS ARTERIAL; TEMPERATURE, FAHRENHEIT, BG 98.6 FAHREN (96.0-98.6)
[2022-04-10] MEDS ORDERED: FentaNYL CIT 1000MCG/0.9% NACL 100 ML IV PRN (01:00)
[2022-04-10] MEDS ORDERED: MIDAZOLAM HCL 100 MG in SODIUM CHLORIDE 0.9% 180 ML IV PRN (01:00)
[2022-04-10] MEDS ORDERED: LEVALBUTEROL HCL 1.25 MG/0.5 ML NEB SOLUTION NEB ONE (01:45)
[2022-04-10] MEDS ORDERED: VASOPRESSIN 40 UNITS in DEXTROSE 5%-WATER 98 ML IV PRN (02:00)
[2022-04-10] MEDS ORDERED: ACETAMINOPHEN 1000 MG/ISO-OSM 100 ML IV ONE (02:30)
[2022-04-10] MEDS ORDERED: SODIUM BICARBONATE [ADULT] 8.4% 50 MEQ/50 ML SYRINGE IVP ONE ×3 (04:57→08:09)
[2022-04-10] MEDS ORDERED: SODIUM CHLORIDE 0.9% 250 ML IV ONE (05:00)
[2022-04-10] MEDS ORDERED: SODIUM CHLORIDE 0.9% 500 ML IV ONE ×2 (05:00→05:58)
[2022-04-10] MEDS ORDERED: DANTROLENE SODIUM IV ONE (05:30)
[2022-04-10] MEDS ORDERED: CONTAINER EMPTY IV ONE (05:30)
[2022-04-10 05:44] VITALS: BP 122/50
[2022-04-10] MEDS: PHENYLEPHRINE HCL 400 MG in DEXTROSE 5%-WATER 210 ML IV PRN ×2 (05:44→05:54)
[2022-04-10] MEDS ORDERED: NOREPINEPHRINE 8 MG/D5%-WATER 250 ML IV PRN (05:45)
[2022-04-10] MEDS ORDERED: PANTOPRAZOLE SODIUM 40 MG/VIAL IVP ONE (06:00)
[2022-04-10] MEDS ORDERED: PANTOPRAZOLE SODIUM 80 MG in SODIUM CHLORIDE 0.9% 100 ML IV SCH (06:00)
[2022-04-10 06:02] LABS: ABG PH 7.239 (7.350-7.450); SITE, BLOOD GAS R
[2022-04-10 06:03] LABS: O2 DEVICE,BLOOD GAS VENT (ROOM AIR); PEEP,BG 5 cm H2O; VT, ABG 450 ml
[2022-04-10 06:12] LABS: HEMOGLOBIN 9.6 g/dL (12.0-16.0); MEAN CORPUSCULAR VOLUME 89 fL (80-100); RED BLOOD CELL COUNT(AUTO) 3.44 MIL/uL (4.00-5.20)
[2022-04-10 06:21] LABS: LACTIC ACID 6.1 mmol/L (0.4-2.0)
[2022-04-10 06:25] LABS: ALANINE AMINOTRANSFERASE 263 U/L (12-78); ALBUMIN 2.9 g/dL (3.4-5.0); ALKALINE PHOSPHATASE 113 U/L (46-116); ANION GAP 18 mmol/L (8-16); ASPARTATE AMINOTRANSFERASE 453 U/L (15-37); C-REACTIVE PROTEIN QUANT 11.09 mg/dL (0.00-0.30); CALCIUM, TOTAL 7.1 mg/dL (8.8-10.5); CARBON DIOXIDE 23 mmol/L (22-29); CHLORIDE 101 mmol/L (98-107); CREATINE KINASE, TOTAL ONLY 163 U/L (26-192); CREATININE 2.96 mg/dL (0.60-1.30); GLUCOSE,RANDOM 218 mg/dL (70-110); PHOSPHORUS 7.4 mg/dL (2.5-4.9); SODIUM SERUM 142 mmol/L (136-145); THYROID STIMULATING HORMONE 1.81 uIU/mL (0.36-3.74); TOTAL PROTEIN, SERUM 5.8 g/dL (6.4-8.2); UREA NITROGEN, BLOOD 27 mg/dL (7-18)
[2022-04-10 06:26] LABS: FERRITIN 18692 ng/mL (8-252); GLOMERULAR FILTR. RATE CALC 18 mL/min (>60)
[2022-04-10 06:27] LABS: POTASSIUM 6.2 mmol/L (3.5-5.1)
[2022-04-10] MEDS ORDERED: GEMFIBROZIL 600 MG TABLET PO SCH (06:30)
[2022-04-10 06:31] LABS: SITE, BLOOD GAS LFT RADIAL; SOURCE, BLOOD GAS ARTERIAL
[2022-04-10 06:32] LABS: ABG PCO2 57 mmHg (35-45); ABG PH 7.086 (7.350-7.450); PO2, ARTERIAL BG 95.2 mmHg (92.0-100.0); TEMPERATURE, FAHRENHEIT, BG 108.4 FAHREN (96.0-98.6)
[2022-04-10 06:33] LABS: ABG BASE EXCESS -13.1 mmol/L (-2.0-3.0); ABG CARBOXYHEMOGLOBIN 0.2 % (0.0-1.5); ABG HCO3 14.2 mmol/L (22.0-26.0); ABG METHEMOGLOBIN 0.4 % (0.0-1.5); ABG OXYHEMOGLOBIN 93.7 % (94.0-100.0); ABG TOTAL HEMOGLOBIN 11.3 G/dL (12.0-18.0); O2 DEVICE,BLOOD GAS VENTILATOR (ROOM AIR); VT, ABG 450 ml
[2022-04-10 06:34] LABS: PEEP,BG 8 cm H2O
[2022-04-10 06:51] LABS: GLUCOSE,POINT OF CARE 175 MG/DL (70-110)
[2022-04-10 07:31] LABS: INR 2.5 (0.9-1.1)
[2022-04-10 07:36] LABS: FIBRINOGEN < 25 mg/dL (200-400)
[2022-04-10 07:38] LABS: D-DIMER 1.98 mg/L FEU (0.00-0.50)
[2022-04-10 07:51] LABS: PLATELET COUNT (AUTO) 18 K/uL (150-450)
[2022-04-10 07:52] LABS: HEMATOCRIT 30.8 % (36-46)
[2022-04-10 07:53] LABS: MEAN CORPUSCULAR HEMOGLOBIN 27.8 pg (26.0-34.0); MEAN CORPUSCULAR HGB CONC 31.3 G/dL (31.0-37.0); RED CELL DISTRIBUTION WIDTH 21.1 % (11.5-14.5)
[2022-04-10] MEDS ORDERED: EPINEPHrine 1:10,000 [1 MG/10 ML] SYRINGE ONE (07:59)
[2022-04-10] MEDS ORDERED: CALCIUM CHLORIDE 100 MG/ML 10 ML SYRINGE IVP ONE (08:09)
[2022-04-10] MEDS ORDERED: LIDOCAINE/PF 2% 5 ML SYRINGE IVP ONE (08:09)
[2022-04-10] MEDS ORDERED: ATROPINE SULFATE 0.1 MG/ML 10 ML SYRINGE IVP ONE (08:09)
[2022-04-10] MEDS ORDERED: 0.9% SODIUM CHLORIDE 10 ML SYRINGE IVP ONE (08:09)
[2022-04-10] MEDS ORDERED: EPINEPHrine 1:10,000 [1 MG/10 ML] SYRINGE IVP ONE (08:09)
[2022-04-10] MEDS ORDERED: AMIODARONE HCL 50 MG/ML 3 ML VIAL IV ONE (08:09)
[2022-04-10 08:32] LABS: BAND NEUTROPHILS % (MANUAL) 2 % (0-5); CORRECTED WHITE BLOOD COUNT 16.8 K/uL (4.5-11.0); LYMPHOCYTES % (MANUAL) 19 % (22-44); METAMYELOCYTES % 1 % (0-0); MONOCYTES % (MANUAL) 12 % (2-9); MYELOCYTES % 1 % (0-0); SEGMENTED NEUTROPHILS % 65 % (40-70)
[2022-04-10] MEDS ORDERED: ASPIRIN 81 MG CHEWABLE TABLET PO SCH (09:00)
[2022-04-10] MEDS ORDERED: CHLORHEXIDINE GLUCONATE 0.12% 15 ML UDCUP ORAL RINSE MM SCH (09:00)
[2022-04-10] MEDS ORDERED: SERTRALINE HCL 100 MG TABLET PO SCH (09:00)
[2022-04-10] MEDS ORDERED: REMDESIVIR 100 MG in SODIUM CHLORIDE 0.9% 250 ML IV SCH (22:00)
== END 2022-04-10 08:10 | DRG 720 ==
LOC: EMS 17:46 → ICU 23:58
PROVIDERS: ADMIT Internal Medicine; ATTEND Internal Medicine
PROC: XW033E5 Introduction of Remdesivir Anti-infective into Peripheral Vein, Percutaneous Approach, New Technology Group 5 (ICD-10-PCS; principal; 2022-04-09)
PROC: 5A1935Z Respiratory Ventilation, Less than 24 Consecutive Hours (ICD-10-PCS; 2022-04-10)
DX: A41.9 Sepsis, unspecified organism (principal); J96.01 Acute respiratory failure with hypoxia; D65 Disseminated intravascular coagulation [defibrination syndrome]; U07.1 COVID-19; R65.21 Severe sepsis with septic shock; N12 Tubulo-interstitial nephritis, not specified as acute or chronic; F20.9 Schizophrenia, unspecified; F41.9 Anxiety disorder, unspecified; E66.01 Morbid (severe) obesity due to excess calories; E11.9 Type 2 diabetes mellitus without complications; J45.909 Unspecified asthma, uncomplicated; I34.1 Nonrheumatic mitral (valve) prolapse; I10 Essential (primary) hypertension; E78.5 Hyperlipidemia, unspecified; Z68.41 Body mass index [BMI] 40.0-44.9, adult; Z79.52 Long term (current) use of systemic steroids; Z82.5 Family history of asthma and other chronic lower respiratory diseases; Z88.8 Allergy status to other drugs, medicaments and biological substances; Z91.011 Allergy to milk products; Z91.013 Allergy to seafood; Z79.4 Long term (current) use of insulin
CPT/HCPCS: 31500; 36556; 71045; 71275; 74177; 80053; 81001; 82247; 82248; 82550; 82570; 82728; 82805; 82962; 83010; 83605; 83615; 83735; 83880; 83930; 83935; 84100; 84145; 84260; 84300; 84443; 84484; 84702; 85025; 85045; 85362; 85379; 85384; 85610; 85730; 86140; 86850; 86900; 86901; 87040; 87077; 87081; 87086; 87205; 87804; 92950; 93005; 94002; 99291; C9113; G0378; J0131; J0171; J0282; J0461; J0696; J1100; J1815; J2060; J2370; J3490; J7030; J7040; J7050; J7060; J7120; Q9967; 36415-L1; 36415-TC